=== PATIENT | male | born 1960 | race Caucasian/White ===

== ENCOUNTER 2021-06-11 15:47 | Emergency (ER) | payer MEDICARE ==
[~2021-06-11] VITALS: Ht 180.3 cm; Wt 86.2 kg
[2021-06-11 16:36] LABS: BASOPHILS # (AUTO) 0.1 (0.0-0.1); BASOPHILS % 0.7 % (0.0-1.0); EOSINOPHILS # (AUTO) 0.2 (0.0-0.4); EOSINOPHILS % 2.4 % (0.0-6.0); HEMATOCRIT 26.7 % (38.2-49.6); HEMOGLOBIN 8.5 g/dL (14.0-18.0); LYMPHOCYTES # (AUTO) 1.2 (1.0-3.2); LYMPHOCYTES % 16.3 % (18.0-39.1); MEAN CORPUSCULAR HEMOGLOBIN 27.3 pg (28-32); MEAN CORPUSCULAR HGB CONC 31.8 g/dL (31-35); MEAN CORPUSCULAR VOLUME 85.9 fL (81-99); MONOCYTES # (AUTO) 0.7 (0.2-0.8); MONOCYTES % 9.8 % (4.4-11.3); NEUTROPHILS # (AUTO) 5.1 (2.1-6.9); NEUTROPHILS % 70.2 % (38.7-80.0); PLATELET COUNT 86 x10e3/uL (140-360); RED BLOOD COUNT 3.11 x10e6/uL (4.3-5.7)
[2021-06-11 16:42] LABS: INR 1.16; PROTHROMBIN TIME 15.7 seconds (11.9-14.5)
[2021-06-11 16:51] LABS: ANION GAP 16.6 mmol/L (8-16); CALCIUM 8.1 mg/dL (8.4-10.2); CREATININE, SERUM 0.84 mg/dL (0.72-1.25); MAGNESIUM 1.5 MG/DL (1.3-2.1); POTASSIUM 4.6 mmol/L (3.5-5.1)
[2021-06-11 16:52] LABS: ALBUMIN 3.1 g/dL (3.5-5.0); BILIRUBIN,DIRECT 0.6 mg/dL (0.0-0.5)
[2021-06-11] MEDS ORDERED: Pantoprazole IV 40 MG in SODIUM CHLORIDE 0.9% 50ML 50 ML IV SCH (17:00)
[2021-06-11 18:46] VITALS: BP 125/82
== END 2021-06-11 18:48 | disposition home or self-care (01) ==
LOC: ER 15:56
DX: K92.2 Gastrointestinal hemorrhage, unspecified (principal); I10 Essential (primary) hypertension; E11.65 Type 2 diabetes mellitus with hyperglycemia; K76.9 Liver disease, unspecified
CPT/HCPCS: 36415; 71045; 80048; 80076; 82140; 82150; 83690; 83735; 85025; 85610; 85730; 86850; 86900; 93005; 99283; C9113

== ENCOUNTER 2021-06-25 17:03 | Emergency (ER) | payer MEDICARE, OTHER ==
[~2021-06-25] VITALS: Ht 180.3 cm; Wt 86.2 kg
[2021-06-25 18:00] LABS: BASOPHILS % 0.7 % (0.0-1.0); EOSINOPHILS # (AUTO) 0.1 (0.0-0.4); HEMOGLOBIN 7.1 g/dL (14.0-18.0); LYMPHOCYTES # (AUTO) 0.5 (1.0-3.2); LYMPHOCYTES % 15.1 % (18.0-39.1); MEAN CORPUSCULAR HEMOGLOBIN 25.1 pg (28-32); MEAN CORPUSCULAR HGB CONC 29.6 g/dL (31-35); MEAN CORPUSCULAR VOLUME 84.8 fL (81-99); MONOCYTES # (AUTO) 0.4 (0.2-0.8); MONOCYTES % 12.1 % (4.4-11.3); NEUTROPHILS # (AUTO) 2.1 (2.1-6.9); NEUTROPHILS % 69.4 % (38.7-80.0); PLATELET COUNT 60 x10e3/uL (140-360); RED BLOOD COUNT 2.83 x10e6/uL (4.3-5.7)
[2021-06-25 18:17] LABS: ALBUMIN 2.9 g/dL (3.5-5.0); ALBUMIN/GLOBULIN RATIO 0.8 (0.8-2.0); ANION GAP 14.3 mmol/L (8-16); CALCIUM 8.1 mg/dL (8.4-10.2); CREATININE, SERUM 0.77 mg/dL (0.72-1.25); POTASSIUM 4.3 mmol/L (3.5-5.1)
[2021-06-25] MEDS ORDERED: IOPAMIDOL 370 MG/ML 200 ML INFUS..BTL INJ ONE (18:46)
[2021-06-25] MEDS ORDERED: SODIUM CHLORIDE 0.9% 50ML 50 ML ONE (18:46)
[2021-06-25 21:17] VITALS: BP 109/70
== END 2021-06-25 21:18 | disposition home or self-care (01) ==
LOC: ER 17:08
DX: R10.30 Lower abdominal pain, unspecified (principal); D64.9 Anemia, unspecified; R60.9 Edema, unspecified; K76.9 Liver disease, unspecified; I10 Essential (primary) hypertension; E11.9 Type 2 diabetes mellitus without complications
CPT/HCPCS: 36415; 71045; 74177; 80053; 85025; 86850; 86900; 99284; Q9967

== ENCOUNTER 2021-12-27 21:29 | Inpatient (IN) | payer MEDICARE, OTHER ==
[~2021-12-27] VITALS: Ht 177.8 cm; Wt 70.3 kg
[2021-12-27] MEDS: SODIUM CHLORIDE 0.9% 1000ML 1,000 ML IV SCH (02:10)
[2021-12-27] MEDS ORDERED: SODIUM CHLORIDE 0.9% 1000ML 1,000 ML IV SCH (21:45)
[2021-12-27] MEDS ORDERED: ALBUMIN 25% 25GM 100ML 0.25 GM/ML BTL IV ONE (21:45)
[2021-12-27 22:17] LABS: BASOPHILS % 0.8 % (0.0-1.0); EOSINOPHILS # (AUTO) 0.1 (0.0-0.4); EOSINOPHILS % 3.5 % (0.0-6.0); HEMATOCRIT 34.2 % (38.2-49.6); HEMOGLOBIN 11.4 g/dL (14.0-18.0); LYMPHOCYTES # (AUTO) 0.5 (1.0-3.2); LYMPHOCYTES % 12.1 % (18.0-39.1); MEAN CORPUSCULAR HEMOGLOBIN 27.6 pg (28-32); MEAN CORPUSCULAR HGB CONC 33.3 g/dL (31-35); MEAN CORPUSCULAR VOLUME 82.8 fL (81-99); MONOCYTES # (AUTO) 0.6 (0.2-0.8); MONOCYTES % 15.6 % (4.4-11.3); NEUTROPHILS # (AUTO) 2.5 (2.1-6.9); NEUTROPHILS % 67.7 % (38.7-80.0); RED BLOOD COUNT 4.13 x10e6/uL (4.3-5.7); RED CELL DISTRIBUTION WIDTH 19.9 % (11.7-14.4)
[2021-12-27 22:20] LABS: PLATELET COUNT 62 x10e3/uL (140-360)
[2021-12-27 22:26] LABS: INR 1.05; PROTHROMBIN TIME 14.6 seconds (11.9-14.5)
[2021-12-27 22:34] LABS: ALBUMIN 3.1 g/dL (3.5-5.0); ALBUMIN/GLOBULIN RATIO 0.6 (0.8-2.0); ANION GAP 17.9 mmol/L (8-16); CALCIUM 9.1 mg/dL (8.4-10.2); CREATININE, SERUM 1.59 mg/dL (0.72-1.25)
[2021-12-27 22:36] LABS: POTASSIUM 5.9 mmol/L (3.5-5.1)
[2021-12-27] MEDS ORDERED: IOPAMIDOL 370 MG/ML 100 ML INFUS..BTL INJ ONE (22:53)
[2021-12-27] MEDS ORDERED: SODIUM CHLORIDE 0.9% 100 ML ONE (22:53)
[2021-12-27] MEDS ORDERED: SODIUM BICARBONATE 8.4% INJ 50 ML SYR IV STA (23:17)
[2021-12-27] MEDS ORDERED: ALBUTEROL SULF 0.083% NEB SOLN 3 ML NEB NEB STA (23:17)
[2021-12-27] MEDS ORDERED: SOD POLYSTYRENE SULFONATE SUSP 15 GM/60 ML BTL PO ONE (23:30)
[2021-12-27] MEDS ORDERED: INSULIN REGULAR, HUMAN 100 UNIT/1 ML IV ONE (23:30)
[2021-12-28] VITALS (15 sets, daily range): BP systolic 90–118; BP diastolic 56–86
[2021-12-28] MEDS ORDERED: SODIUM CHLORIDE 0.9% 1000ML 1,000 ML IV ONE (01:00)
[2021-12-28 03:05] LABS: ABG PH 7.43 (7.35-7.45)
[2021-12-28 03:06] LABS: ABG HCO3 25 mmol/L (22-26); ABG PCO2 38 mmHg (35-45); ABG PO2 82 mmHg (80-105); ABG TCO2 26
[2021-12-28 05:40] LABS: ANION GAP 15.9 mmol/L (8-16); CALCIUM 8.3 mg/dL (8.4-10.2); CREATININE, SERUM 1.12 mg/dL (0.72-1.25); POTASSIUM 4.9 mmol/L (3.5-5.1)
[2021-12-28] MEDS: SODIUM CHLORIDE 0.9% 1000ML 1,000 ML IV SCH (06:10)
[2021-12-28 06:47] LABS: BASOPHILS % 0.5 % (0.0-1.0); EOSINOPHILS # (AUTO) 0.1 (0.0-0.4); EOSINOPHILS % 4.9 % (0.0-6.0); HEMATOCRIT 28.7 % (38.2-49.6); HEMOGLOBIN 9.7 g/dL (14.0-18.0); LYMPHOCYTES # (AUTO) 0.5 (1.0-3.2); LYMPHOCYTES % 24.5 % (18.0-39.1); MEAN CORPUSCULAR HEMOGLOBIN 27.9 pg (28-32); MEAN CORPUSCULAR HGB CONC 33.8 g/dL (31-35); MEAN CORPUSCULAR VOLUME 82.5 fL (81-99); MONOCYTES # (AUTO) 0.3 (0.2-0.8); MONOCYTES % 15.7 % (4.4-11.3); NEUTROPHILS # (AUTO) 1.1 (2.1-6.9); NEUTROPHILS % 53.9 % (38.7-80.0); RED BLOOD COUNT 3.48 x10e6/uL (4.3-5.7); RED CELL DISTRIBUTION WIDTH 19.9 % (11.7-14.4)
[2021-12-28 06:49] LABS: PLATELET COUNT 34 x10e3/uL (140-360)
[2021-12-28 07:53] LABS: ANISOCYTOSIS SLIGHT; PLATELET ESTIMATE MARKEDLY DECREASED; PLATELET MORPHOLOGY COMMENT NORMAL; RBC MORPHOLOGY COMMENT NORMAL
[2021-12-28] MEDS ORDERED: TEMAZEPAM 15 MG CAP PO PRN (08:00)
[2021-12-28] MEDS ORDERED: HYDRALAZINE HCL 20 MG/ML VIAL IV PRN (08:00)
[2021-12-28] MEDS ORDERED: POLYETHYLENE GLYCOL 3350 17 GM PACK PO PRN (08:00)
[2021-12-28] MEDS ORDERED: ONDANSETRON HCL INJ 2MG/ML 2ML 2 MG/ML VIAL IV PRN (08:00)
[2021-12-28] MEDS ORDERED: ACETAMINOPHEN 325 MG TAB PO PRN (08:00)
[2021-12-28 09:00] LABS: FREE T4 (FREE THYROXINE) 0.82 ng/dL (0.8-1.8); THYROID STIMULATING HORMONE 1.76 uIU/mL (0.350-4.940)
[2021-12-28] MEDS: FAMOTIDINE 20 MG/2 ML VIAL IV SCH ×2 (09:00→20:49)
[2021-12-28] MEDS: DOCUSATE SODIUM 100 MG CAP PO SCH ×2 (09:00→17:00)
[2021-12-28] MEDS ORDERED: LACTULOSE SYRUP 20 GM/30 ML UDC PO ONE (18:35)
[2021-12-28] MEDS ORDERED: DEXTROSE 50% SYRINGE 50 ML IV PRN (18:45)
[2021-12-28] MEDS ORDERED: SODIUM CHLORIDE 0.9% 1000ML 1,000 ML IV SCH (18:45)
[2021-12-28] MEDS ORDERED: AMITRIPTYLINE H25 MG PO (18:56)
[2021-12-28] MEDS ORDERED: PROPRANOLOL HCL10 MG PO (18:56)
[2021-12-28] MEDS ORDERED: METFORMIN HCL500 MG PO (18:56)
[2021-12-28] MEDS ORDERED: JANUVIA100 MG PO (18:56)
[2021-12-28] MEDS ORDERED: LISINOPRIL5 MG PO (18:56)
[2021-12-28] MEDS ORDERED: SPIRONOLACTONE100 MG PO (18:56)
[2021-12-28] MEDS ORDERED: LASIX40 MG PO (18:56)
[2021-12-28] MEDS ORDERED: PROTONIX20 MG PO (18:56)
[2021-12-28] MEDS ORDERED: INSULIN GLARGINE 100 UNITS/ML VIAL SQ ONE (21:00)
[2021-12-28] MEDS: INSULIN REGULAR, HUMAN 100 UNIT/1 ML SQ SCH (21:10)
[2021-12-29] VITALS (8 sets, daily range): BP systolic 113–134; BP diastolic 65–91
[2021-12-29 03:48] LABS: % IRON SATURATION 13 % (15-50); IRON 36 ug/dL (65-175); TOTAL IRON BINDING CAPACITY 284 ug/dL (261-478); TRANSFERRIN 203 mg/dL (174-364)
[2021-12-29] MEDS ORDERED: LACTULOSE SYRUP 20 GM/30 ML UDC PO PRN (04:30)
[2021-12-29 06:16] LABS: BASOPHILS % 0.7 % (0.0-1.0); EOSINOPHILS # (AUTO) 0.1 (0.0-0.4); EOSINOPHILS % 3.4 % (0.0-6.0); HEMATOCRIT 32.4 % (38.2-49.6); HEMOGLOBIN 10.4 g/dL (14.0-18.0); LYMPHOCYTES # (AUTO) 0.3 (1.0-3.2); LYMPHOCYTES % 20.5 % (18.0-39.1); MEAN CORPUSCULAR HGB CONC 32.1 g/dL (31-35); MEAN CORPUSCULAR VOLUME 87.1 fL (81-99); MONOCYTES # (AUTO) 0.3 (0.2-0.8); MONOCYTES % 17.1 % (4.4-11.3); NEUTROPHILS # (AUTO) 0.9 (2.1-6.9); NEUTROPHILS % 58.3 % (38.7-80.0); RED BLOOD COUNT 3.72 x10e6/uL (4.3-5.7); RED CELL DISTRIBUTION WIDTH 19.9 % (11.7-14.4)
[2021-12-29 06:33] LABS: ALBUMIN 2.8 g/dL (3.5-5.0); ALBUMIN/GLOBULIN RATIO 0.6 (0.8-2.0); ANION GAP 13.6 mmol/L (8-16); CALCIUM 8.1 mg/dL (8.4-10.2); CHOL/HDL RATIO 6.5 (3.9-4.7); CREATININE, SERUM 1.1 mg/dL (0.72-1.25); MAGNESIUM 1.6 MG/DL (1.3-2.1); PHOSPHORUS 2.2 MG/DL (2.3-4.7); POTASSIUM 4.6 mmol/L (3.5-5.1)
[2021-12-29 06:39] LABS: PLATELET COUNT 30 x10e3/uL (140-360)
[2021-12-29] MEDS ORDERED: MAGNESIUM SULFATE 2GM/50ML 50 ML IV ONE (07:30)
[2021-12-29] MEDS: INSULIN REGULAR, HUMAN 100 UNIT/1 ML SQ SCH ×4 (08:10→21:12)
[2021-12-29] MEDS: DOCUSATE SODIUM 100 MG CAP PO SCH ×2 (09:00→16:27)
[2021-12-29] MEDS ORDERED: IRON SUCROSE 100 MG in SODIUM CHLORIDE 0.9% 100 ML 100 ML IV SCH (09:00)
[2021-12-29] MEDS ORDERED: AMITRIPTYLINE HCL 25 MG TAB PO SCH (09:00)
[2021-12-29 09:54] LABS: EOSINOPHILS % (MANUAL) 2 % (0-7); LYMPHOCYTES % (MANUAL) 20 % (19-48); MONOCYTES % (MANUAL) 8 % (3.4-9.0); NEUTROPHILS % (MANUAL) 69 % (40-74)
[2021-12-29 09:56] LABS: ANISOCYTOSIS MODERATE; HYPOCHROMASIA MODERATE; PLATELET ESTIMATE MARKEDLY DECREASED; PLATELET MORPHOLOGY COMMENT NORMAL; RBC MORPHOLOGY COMMENT ABNORMAL
[2021-12-29] MEDS: AMITRIPTYLINE HCL 25 MG TAB PO SCH (10:11)
[2021-12-29] MEDS: FAMOTIDINE 20 MG/2 ML VIAL IV SCH ×2 (10:11→16:35)
[2021-12-29] MEDS: IRON SUCROSE 100 MG in SODIUM CHLORIDE 0.9% 100 ML 100 ML IV SCH (11:40)
[2021-12-29] MEDS: INSULIN GLARGINE 100 UNITS/ML VIAL SQ SCH (21:31)
[2021-12-30] VITALS (7 sets, daily range): BP systolic 102–122; BP diastolic 65–98
[2021-12-30 06:26] LABS: EOSINOPHILS # (AUTO) 0.1 (0.0-0.4); EOSINOPHILS % 4.6 % (0.0-6.0); HEMATOCRIT 32.5 % (38.2-49.6); HEMOGLOBIN 10.3 g/dL (14.0-18.0); LYMPHOCYTES # (AUTO) 0.3 (1.0-3.2); MEAN CORPUSCULAR HEMOGLOBIN 27.2 pg (28-32); MEAN CORPUSCULAR HGB CONC 31.7 g/dL (31-35); MONOCYTES # (AUTO) 0.2 (0.2-0.8); MONOCYTES % 16.2 % (4.4-11.3); NEUTROPHILS # (AUTO) 0.8 (2.1-6.9); NEUTROPHILS % 59.2 % (38.7-80.0); RED BLOOD COUNT 3.78 x10e6/uL (4.3-5.7); RED CELL DISTRIBUTION WIDTH 19.7 % (11.7-14.4)
[2021-12-30 06:54] LABS: PLATELET COUNT 25 x10e3/uL (140-360)
[2021-12-30] MEDS: INSULIN REGULAR, HUMAN 100 UNIT/1 ML SQ SCH ×4 (07:30→22:15)
[2021-12-30] MEDS ORDERED: SODIUM FERRIC GLUCONATE COMPLX 125 MG in SODIUM CHLORIDE 0.9% 100 ML 100 ML IV SCH (09:00)
[2021-12-30] MEDS: DOCUSATE SODIUM 100 MG CAP PO SCH ×2 (09:00→17:00)
[2021-12-30] MEDS: PROPRANOLOL HCL 10 MG TAB PO SCH ×2 (09:00→17:00)
[2021-12-30] MEDS: AMITRIPTYLINE HCL 25 MG TAB PO SCH (09:00)
[2021-12-30] MEDS: INSULIN GLARGINE 100 UNITS/ML VIAL SQ SCH ×2 (09:00→22:15)
[2021-12-30] MEDS: FAMOTIDINE 20 MG/2 ML VIAL IV SCH ×2 (09:00→17:00)
[2021-12-30 09:02] LABS: EOSINOPHILS % (MANUAL) 4 % (0-7); LYMPHOCYTES % (MANUAL) 18 % (19-48); MONOCYTES % (MANUAL) 16 % (3.4-9.0); NEUTROPHILS % (MANUAL) 62 % (40-74); PLATELET ESTIMATE MARKEDLY DECREASED; PLATELET MORPHOLOGY COMMENT NORMAL; RBC MORPHOLOGY COMMENT NORMAL
[2021-12-30] MEDS ORDERED: FILGRASTIM-AAFI 300 MCG/0.5 ML SYRINGE SQ ONE (09:30)
[2021-12-30] MEDS: IRON SUCROSE 100 MG in SODIUM CHLORIDE 0.9% 100 ML 100 ML IV SCH (13:10)
[2021-12-31 01:57] VITALS: BP 128/72
[2021-12-31 06:11] VITALS: BP 110/60
[2021-12-31 07:15] LABS: BASOPHILS % 0.3 % (0.0-1.0); EOSINOPHILS # (AUTO) 0.1 (0.0-0.4); EOSINOPHILS % 1.5 % (0.0-6.0); HEMATOCRIT 32.3 % (38.2-49.6); HEMOGLOBIN 10.2 g/dL (14.0-18.0); LYMPHOCYTES # (AUTO) 0.4 (1.0-3.2); LYMPHOCYTES % 5.7 % (18.0-39.1); MEAN CORPUSCULAR HEMOGLOBIN 27.9 pg (28-32); MEAN CORPUSCULAR HGB CONC 31.6 g/dL (31-35); MEAN CORPUSCULAR VOLUME 88.5 fL (81-99); MONOCYTES # (AUTO) 0.5 (0.2-0.8); NEUTROPHILS # (AUTO) 6.2 (2.1-6.9); NEUTROPHILS % 84.8 % (38.7-80.0); RED BLOOD COUNT 3.65 x10e6/uL (4.3-5.7); RED CELL DISTRIBUTION WIDTH 19.7 % (11.7-14.4)
[2021-12-31 07:43] LABS: PLATELET COUNT 24 x10e3/uL (140-360)
[2021-12-31 07:52] LABS: ANION GAP 13.2 mmol/L (8-16); CALCIUM 8.6 mg/dL (8.4-10.2); CREATININE, SERUM 0.97 mg/dL (0.72-1.25); POTASSIUM 5.2 mmol/L (3.5-5.1)
[2021-12-31] MEDS ORDERED: LANTUS 3ML100 UNITS/ SC (07:56)
[2021-12-31] MEDS: INSULIN REGULAR, HUMAN 100 UNIT/1 ML SQ SCH ×2 (08:25→11:30)
[2021-12-31 09:00] VITALS: BP 110/60
[2021-12-31 09:13] VITALS: BP 109/70
[2021-12-31] MEDS: FAMOTIDINE 20 MG/2 ML VIAL IV SCH (09:14)
[2021-12-31] MEDS: DOCUSATE SODIUM 100 MG CAP PO SCH (09:14)
[2021-12-31] MEDS: AMITRIPTYLINE HCL 25 MG TAB PO SCH (09:14)
[2021-12-31] MEDS: PROPRANOLOL HCL 10 MG TAB PO SCH (09:15)
[2021-12-31] MEDS: INSULIN GLARGINE 100 UNITS/ML VIAL SQ SCH (09:16)
[2021-12-31] MEDS: IRON SUCROSE 100 MG in SODIUM CHLORIDE 0.9% 100 ML 100 ML IV SCH (11:04)
[2021-12-31] MEDS ORDERED: ONDANSETRON HCL 4 MG ORAL DISINTEGRATING TAB PO PRN (13:15)
[2021-12-31] MEDS ORDERED: FAMOTIDINE 20 MG TAB PO SCH (16:30)
== END 2021-12-31 14:00 | disposition home or self-care (01) | DRG 641 ==
LOC: ER 21:42 → ERHOLD 23:23 → ICU 12-28 01:08 → MED/SURG2 12-29 22:35
PROVIDERS: ADMIT Internal Medicine; ATTEND Internal Medicine
DX: E87.5 Hyperkalemia (principal); N17.9 Acute kidney failure, unspecified; D61.818 Other pancytopenia; K76.6 Portal hypertension; I85.10 Secondary esophageal varices without bleeding; E78.5 Hyperlipidemia, unspecified; E87.1 Hypo-osmolality and hyponatremia; E87.2 Acidosis; E86.0 Dehydration; E11.65 Type 2 diabetes mellitus with hyperglycemia; Z87.891 Personal history of nicotine dependence; Z79.4 Long term (current) use of insulin; K31.89 Other diseases of stomach and duodenum; D63.8 Anemia in other chronic diseases classified elsewhere; D70.9 Neutropenia, unspecified; D50.9 Iron deficiency anemia, unspecified; E53.8 Deficiency of other specified B group vitamins; B19.20 Unspecified viral hepatitis C without hepatic coma; D73.1 Hypersplenism; K70.31 Alcoholic cirrhosis of liver with ascites; Z91.010 Allergy to peanuts
CPT/HCPCS: 36415; 36600; 70450; 71045; 74174; 80048; 80053; 80061; 82607; 82746; 82805; 82948; 83036; 83540; 83735; 83880; 84100; 84439; 84443; 84466; 84484; 85025; 85045; 85610; 86850; 86900; 93005; 93880; 94640; 94799; 97139; 99251; 99284; J1756; J1815; J1817; J3475; J7030; J7050; P9047; Q9967

== ENCOUNTER 2022-01-12 15:34 | Inpatient (IN) | payer MEDICARE, OTHER ==
[~2022-01-12] VITALS: Ht 175.3 cm; Wt 68.5 kg
[~2022-01-12 15:34] MED LIST: AMITRIPTYLINE H25 MG PO; JANUVIA100 MG PO; LANTUS 3ML100 UNITS/ SC; LASIX40 MG PO; LISINOPRIL5 MG PO; METFORMIN HCL500 MG PO; PROPRANOLOL HCL10 MG PO; PROTONIX20 MG PO; SPIRONOLACTONE100 MG PO
[2022-01-12 16:32] LABS: BASOPHILS % 0.8 % (0.0-1.0); EOSINOPHILS # (AUTO) 0.1 (0.0-0.4); EOSINOPHILS % 3.9 % (0.0-6.0); HEMATOCRIT 35.7 % (38.2-49.6); HEMOGLOBIN 11.8 g/dL (14.0-18.0); LYMPHOCYTES # (AUTO) 0.3 (1.0-3.2); MEAN CORPUSCULAR HEMOGLOBIN 28.9 pg (28-32); MEAN CORPUSCULAR HGB CONC 33.1 g/dL (31-35); MEAN CORPUSCULAR VOLUME 87.5 fL (81-99); MONOCYTES # (AUTO) 0.3 (0.2-0.8); NEUTROPHILS # (AUTO) 1.8 (2.1-6.9); NEUTROPHILS % 70.9 % (38.7-80.0); RED BLOOD COUNT 4.08 x10e6/uL (4.3-5.7); RED CELL DISTRIBUTION WIDTH 17.1 % (11.7-14.4)
[2022-01-12 16:35] LABS: PLATELET COUNT 45 x10e3/uL (140-360)
[2022-01-12 16:44] LABS: INR 1.12; PROTHROMBIN TIME 15.4 seconds (11.9-14.5)
[2022-01-12 16:51] LABS: ALBUMIN 3.2 g/dL (3.5-5.0); ALBUMIN/GLOBULIN RATIO 0.6 (0.8-2.0); ANION GAP 19.1 mmol/L (8-16); CALCIUM 9.4 mg/dL (8.4-10.2); CREATININE, SERUM 1.5 mg/dL (0.72-1.25)
[2022-01-12 17:07] LABS: POTASSIUM 6.1 mmol/L (3.5-5.1)
[2022-01-12] MEDS ORDERED: ALBUTEROL SULF 0.083% NEB SOLN 3 ML NEB NEB STA (17:10)
[2022-01-12] MEDS ORDERED: SODIUM BICARBONATE 8.4% INJ 50 ML SYR IV STA (17:10)
[2022-01-12] MEDS ORDERED: CALCIUM GLUC 1 G/50 ML NACL 50 ML IV ONE (17:15)
[2022-01-12] MEDS ORDERED: ONDANSETRON HCL INJ 2MG/ML 2ML 2 MG/ML VIAL IV PRN (17:15)
[2022-01-12] MEDS ORDERED: DEXTROSE 50% SYRINGE 50 ML IV ONE (17:15)
[2022-01-12] MEDS ORDERED: FUROSEMIDE INJ 10 MG/ML 2 ML VIAL IV ONE (17:15)
[2022-01-12] MEDS ORDERED: Morphine 4mg INJECTION 4 MG/ML INJ IV PRN (17:15)
[2022-01-12 17:40] LABS: CREATINE KINASE 69 IU/L (30-200)
[2022-01-12] MEDS ORDERED: INSULIN REGULAR, HUMAN 100 UNIT/1 ML SQ ONE (17:45)
[2022-01-12] MEDS: SODIUM CHLORIDE 0.9% 1000ML 1,000 ML IV SCH (17:50)
[2022-01-12] MEDS ORDERED: ACETAMINOPHEN 325 MG TAB PO PRN (18:30)
[2022-01-12] MEDS ORDERED: HYDRALAZINE HCL 20 MG/ML VIAL IV PRN (18:30)
[2022-01-12] MEDS ORDERED: DEXTROSE 50% SYRINGE 50 ML IV PRN (18:45)
[2022-01-12 19:27] LABS: CLARITY,URINE CLEAR (CLEAR); COLOR,URINE YELLOW (YELLOW); KETONES,URINE NEGATIVE (NEGATIVE); LEUKOCYTE ESTERASE ,URINE NEGATIVE (NEGATIVE); NITRITE,URINE NEGATIVE (NEGATIVE); PROTEIN,URINE DIPSTICK NEGATIVE (NEGATIVE); URINE UROBILINOGEN 0.2 mg/dL (0.2 - 1)
[2022-01-12 19:34] LABS: WBC,URINE (MAN) 0-5 /HPF (0-5)
[2022-01-12 19:35] LABS: BACTERIA,URINE MANY /HPF
[2022-01-12] MEDS ORDERED: ALBUTEROL SULF 0.083% NEB SOLN 3 ML NEB ONE (20:20)
[2022-01-12] MEDS ORDERED: AMITRIPTYLINE H75 MG PO (20:45)
[2022-01-12] MEDS ORDERED: ZOLPIDEM TARTRATE 5 MG TAB PO PRN (21:00)
[2022-01-12] MEDS: INSULIN REGULAR, HUMAN 100 UNIT/1 ML SQ SCH (21:10)
[2022-01-12] MEDS: INSULIN GLARGINE 100 UNITS/ML VIAL SQ SCH (21:11)
[2022-01-12 23:00] VITALS: BP 106/82
[2022-01-13] VITALS (18 sets, daily range): BP systolic 92–146; BP diastolic 55–120
[2022-01-13 00:02] LABS: % IRON SATURATION 23 % (15-50); IRON 87 ug/dL (65-175); TOTAL IRON BINDING CAPACITY 378 ug/dL (261-478); TRANSFERRIN 270 mg/dL (174-364)
[2022-01-13] MEDS: AMITRIPTYLINE HCL 25 MG TAB PO SCH ×2 (00:28→22:05)
[2022-01-13] MEDS: SODIUM CHLORIDE 0.9% 1000ML 1,000 ML IV SCH ×2 (00:29→08:22)
[2022-01-13 05:47] LABS: BASOPHILS % 0.5 % (0.0-1.0); EOSINOPHILS # (AUTO) 0.1 (0.0-0.4); EOSINOPHILS % 4.7 % (0.0-6.0); HEMOGLOBIN 9.9 g/dL (14.0-18.0); LYMPHOCYTES # (AUTO) 0.4 (1.0-3.2); LYMPHOCYTES % 21.4 % (18.0-39.1); MEAN CORPUSCULAR HEMOGLOBIN 28.8 pg (28-32); MEAN CORPUSCULAR VOLUME 87.2 fL (81-99); MONOCYTES # (AUTO) 0.3 (0.2-0.8); MONOCYTES % 14.6 % (4.4-11.3); NEUTROPHILS # (AUTO) 1.1 (2.1-6.9); NEUTROPHILS % 58.3 % (38.7-80.0); RED BLOOD COUNT 3.44 x10e6/uL (4.3-5.7); RED CELL DISTRIBUTION WIDTH 16.9 % (11.7-14.4)
[2022-01-13 05:50] LABS: PLATELET COUNT 37 x10e3/uL (140-360)
[2022-01-13] MEDS ORDERED: CEFEPIME HCL 1 GM VIAL ONE (06:07)
[2022-01-13 06:18] LABS: ALBUMIN 2.6 g/dL (3.5-5.0); ALBUMIN/GLOBULIN RATIO 0.6 (0.8-2.0); ANION GAP 15.3 mmol/L (8-16); CALCIUM 8.1 mg/dL (8.4-10.2); CREATININE, SERUM 0.85 mg/dL (0.72-1.25); POTASSIUM 4.3 mmol/L (3.5-5.1)
[2022-01-13 06:39] LABS: CREATINE KINASE 58 IU/L (30-200)
[2022-01-13 07:02] LABS: MAGNESIUM 1.3 MG/DL (1.3-2.1)
[2022-01-13 07:40] LABS: EOSINOPHILS % (MANUAL) 3 % (0-7); LYMPHOCYTES % (MANUAL) 23 % (19-48); MONOCYTES % (MANUAL) 12 % (3.4-9.0); NEUTROPHILS % (MANUAL) 62 % (40-74); PLATELET ESTIMATE MARKEDLY DECREASED; PLATELET MORPHOLOGY COMMENT NORMAL; RBC MORPHOLOGY COMMENT NORMAL
[2022-01-13] MEDS: INSULIN REGULAR, HUMAN 100 UNIT/1 ML SQ SCH ×4 (07:50→22:13)
[2022-01-13] MEDS: FAMOTIDINE 20 MG/2 ML VIAL IV SCH (08:22)
[2022-01-13] MEDS ORDERED: ALDACTONE100 MG PO (11:05)
[2022-01-13] MEDS ORDERED: DICYCLOMINE HCL20 MG PO (11:06)
[2022-01-13 14:51] LABS: CREATINE KINASE 69 IU/L (30-200)
[2022-01-13] MEDS: INSULIN GLARGINE 100 UNITS/ML VIAL SQ SCH (22:11)
[2022-01-14] VITALS (16 sets, daily range): BP systolic 100–132; BP diastolic 62–82
[2022-01-14] MEDS ORDERED: MAGNESIUM SULF 1GRAM/DEXTROSE 100 ML IV SCH (00:15)
[2022-01-14] MEDS ORDERED: MAGNESIUM SULF 1GRAM/DEXTROSE 100 ML IV ONE (00:30)
[2022-01-14] MEDS ORDERED: MAGNESIUM SULFATE 2GM/50ML 50 ML IV ONE (01:15)
[2022-01-14 05:24] LABS: BASOPHILS % 0.7 % (0.0-1.0); EOSINOPHILS # (AUTO) 0.1 (0.0-0.4); EOSINOPHILS % 5.6 % (0.0-6.0); HEMATOCRIT 31.1 % (38.2-49.6); HEMOGLOBIN 10.2 g/dL (14.0-18.0); LYMPHOCYTES # (AUTO) 0.3 (1.0-3.2); LYMPHOCYTES % 19.6 % (18.0-39.1); MEAN CORPUSCULAR HEMOGLOBIN 28.8 pg (28-32); MEAN CORPUSCULAR HGB CONC 32.8 g/dL (31-35); MEAN CORPUSCULAR VOLUME 87.9 fL (81-99); MONOCYTES # (AUTO) 0.3 (0.2-0.8); MONOCYTES % 17.5 % (4.4-11.3); NEUTROPHILS # (AUTO) 0.8 (2.1-6.9); NEUTROPHILS % 55.9 % (38.7-80.0); RED BLOOD COUNT 3.54 x10e6/uL (4.3-5.7); RED CELL DISTRIBUTION WIDTH 16.9 % (11.7-14.4)
[2022-01-14 05:40] LABS: PLATELET COUNT 32 x10e3/uL (140-360)
[2022-01-14] MEDS ORDERED: SODIUM CHLORIDE 0.9% 250ML 250 ML ONE (05:57)
[2022-01-14 06:02] LABS: ALBUMIN 2.7 g/dL (3.5-5.0); ALBUMIN/GLOBULIN RATIO 0.6 (0.8-2.0); ANION GAP 12.5 mmol/L (8-16); CALCIUM 7.9 mg/dL (8.4-10.2); CREATININE, SERUM 0.83 mg/dL (0.72-1.25); POTASSIUM 4.5 mmol/L (3.5-5.1)
[2022-01-14] MEDS: INSULIN REGULAR, HUMAN 100 UNIT/1 ML SQ SCH ×4 (07:49→20:54)
[2022-01-14] MEDS: FAMOTIDINE 20 MG/2 ML VIAL IV SCH (08:34)
[2022-01-14] MEDS: GABAPENTIN 100 MG CAP PO SCH ×2 (10:30→20:44)
[2022-01-14] MEDS ORDERED: FILGRASTIM-AAFI 300 MCG/0.5 ML SYRINGE SQ ONE (12:00)
[2022-01-14] MEDS: SODIUM FERRIC GLUCONATE COMPLX 125 MG in SODIUM CHLORIDE 0.9% 100 ML 100 ML IV SCH (13:45)
[2022-01-14] MEDS: AMITRIPTYLINE HCL 25 MG TAB PO SCH (20:44)
[2022-01-14] MEDS: INSULIN GLARGINE 100 UNITS/ML VIAL SQ SCH (20:53)
[2022-01-15] VITALS (7 sets, daily range): BP systolic 121–145; BP diastolic 64–83
[2022-01-15] MEDS: INSULIN REGULAR, HUMAN 100 UNIT/1 ML SQ SCH ×4 (08:37→20:32)
[2022-01-15] MEDS: FAMOTIDINE 20 MG/2 ML VIAL IV SCH (08:43)
[2022-01-15] MEDS: GABAPENTIN 100 MG CAP PO SCH (08:43)
[2022-01-15 09:31] LABS: BASOPHILS % 0.4 % (0.0-1.0); EOSINOPHILS # (AUTO) 0.1 (0.0-0.4); EOSINOPHILS % 2.6 % (0.0-6.0); HEMOGLOBIN 11.1 g/dL (14.0-18.0); LYMPHOCYTES # (AUTO) 0.4 (1.0-3.2); LYMPHOCYTES % 7.6 % (18.0-39.1); MEAN CORPUSCULAR HEMOGLOBIN 28.9 pg (28-32); MEAN CORPUSCULAR HGB CONC 32.6 g/dL (31-35); MEAN CORPUSCULAR VOLUME 88.5 fL (81-99); MONOCYTES # (AUTO) 0.6 (0.2-0.8); NEUTROPHILS # (AUTO) 4.2 (2.1-6.9); RED BLOOD COUNT 3.84 x10e6/uL (4.3-5.7); RED CELL DISTRIBUTION WIDTH 16.9 % (11.7-14.4)
[2022-01-15 09:37] LABS: PLATELET COUNT 34 x10e3/uL (140-360)
[2022-01-15] MEDS: GABAPENTIN 300 MG CAP PO SCH ×2 (12:00→21:57)
[2022-01-15 12:59] LABS: ALBUMIN/GLOBULIN RATIO 0.6 (0.8-2.0); ANION GAP 15.2 mmol/L (8-16); CALCIUM 8.4 mg/dL (8.4-10.2); CREATININE, SERUM 0.84 mg/dL (0.72-1.25); POTASSIUM 4.2 mmol/L (3.5-5.1)
[2022-01-15] MEDS ORDERED: INSULIN GLARGINE 100 UNITS/ML VIAL SQ SCH (13:30)
[2022-01-15] MEDS: SODIUM FERRIC GLUCONATE COMPLX 125 MG in SODIUM CHLORIDE 0.9% 100 ML 100 ML IV SCH (15:55)
[2022-01-15] MEDS: INSULIN GLARGINE 100 UNITS/ML VIAL SQ SCH (20:28)
[2022-01-15] MEDS: AMITRIPTYLINE HCL 25 MG TAB PO SCH (21:56)
[2022-01-16] VITALS (10 sets, daily range): BP systolic 107–138; BP diastolic 60–99
[2022-01-16 07:14] LABS: BASOPHILS % 0.7 % (0.0-1.0); EOSINOPHILS # (AUTO) 0.1 (0.0-0.4); HEMATOCRIT 29.2 % (38.2-49.6); HEMOGLOBIN 9.6 g/dL (14.0-18.0); LYMPHOCYTES # (AUTO) 0.5 (1.0-3.2); LYMPHOCYTES % 15.8 % (18.0-39.1); MEAN CORPUSCULAR HEMOGLOBIN 28.7 pg (28-32); MEAN CORPUSCULAR HGB CONC 32.9 g/dL (31-35); MEAN CORPUSCULAR VOLUME 87.4 fL (81-99); MONOCYTES # (AUTO) 0.5 (0.2-0.8); MONOCYTES % 15.4 % (4.4-11.3); NEUTROPHILS # (AUTO) 1.9 (2.1-6.9); NEUTROPHILS % 63.4 % (38.7-80.0); RED BLOOD COUNT 3.34 x10e6/uL (4.3-5.7); RED CELL DISTRIBUTION WIDTH 16.8 % (11.7-14.4)
[2022-01-16 07:21] LABS: PLATELET COUNT 27 x10e3/uL (140-360)
[2022-01-16 07:37] LABS: ALBUMIN 2.6 g/dL (3.5-5.0); ALBUMIN/GLOBULIN RATIO 0.7 (0.8-2.0); ANION GAP 11.1 mmol/L (8-16); CALCIUM 8.1 mg/dL (8.4-10.2); CREATININE, SERUM 0.78 mg/dL (0.72-1.25); POTASSIUM 4.1 mmol/L (3.5-5.1)
[2022-01-16] MEDS: METOPROLOL SUCCINATE 25 MG TAB XL PO SCH (09:00)
[2022-01-16] MEDS: GABAPENTIN 300 MG CAP PO SCH ×2 (09:00→21:22)
[2022-01-16] MEDS: FAMOTIDINE 20 MG/2 ML VIAL IV SCH (09:00)
[2022-01-16] MEDS: INSULIN GLARGINE 100 UNITS/ML VIAL SQ SCH ×2 (09:51→21:43)
[2022-01-16] MEDS: INSULIN REGULAR, HUMAN 100 UNIT/1 ML SQ SCH ×4 (09:51→21:44)
[2022-01-16] MEDS: SODIUM FERRIC GLUCONATE COMPLX 125 MG in SODIUM CHLORIDE 0.9% 100 ML 100 ML IV SCH (14:07)
[2022-01-16] MEDS ORDERED: SODIUM CHLORIDE 0.9% 250ML 250 ML ONE (14:25)
[2022-01-16] MEDS: AMITRIPTYLINE HCL 25 MG TAB PO SCH (21:22)
[2022-01-17] VITALS: BP 97/53
[2022-01-17 04:00] VITALS: BP 124/75
[2022-01-17 06:36] LABS: BASOPHILS % 1.5 % (0.0-1.0); EOSINOPHILS # (AUTO) 0.1 (0.0-0.4); EOSINOPHILS % 4.4 % (0.0-6.0); HEMATOCRIT 31.5 % (38.2-49.6); HEMOGLOBIN 10.3 g/dL (14.0-18.0); LYMPHOCYTES # (AUTO) 0.4 (1.0-3.2); LYMPHOCYTES % 19.9 % (18.0-39.1); MEAN CORPUSCULAR HEMOGLOBIN 29.3 pg (28-32); MEAN CORPUSCULAR HGB CONC 32.7 g/dL (31-35); MEAN CORPUSCULAR VOLUME 89.7 fL (81-99); MONOCYTES # (AUTO) 0.3 (0.2-0.8); NEUTROPHILS # (AUTO) 1.2 (2.1-6.9); NEUTROPHILS % 57.7 % (38.7-80.0); RED BLOOD COUNT 3.51 x10e6/uL (4.3-5.7)
[2022-01-17 06:48] LABS: PLATELET COUNT 32 x10e3/uL (140-360)
[2022-01-17 06:51] LABS: ANION GAP 13.3 mmol/L (8-16); CALCIUM 8.5 mg/dL (8.4-10.2); CREATININE, SERUM 0.82 mg/dL (0.72-1.25); POTASSIUM 4.3 mmol/L (3.5-5.1)
[2022-01-17 07:51] VITALS: BP 115/67
[2022-01-17 08:13] VITALS: BP 115/67
[2022-01-17] MEDS: INSULIN GLARGINE 100 UNITS/ML VIAL SQ SCH (08:41)
[2022-01-17] MEDS: GABAPENTIN 300 MG CAP PO SCH (08:44)
[2022-01-17] MEDS: FAMOTIDINE 20 MG/2 ML VIAL IV SCH (08:45)
[2022-01-17] MEDS: METOPROLOL SUCCINATE 25 MG TAB XL PO SCH (08:45)
[2022-01-17] MEDS ORDERED: ASPIRIN CHEW81 MG PO (11:46)
[2022-01-17 11:56] VITALS: BP 123/79
== END 2022-01-17 12:24 | disposition home or self-care (01) | DRG 432 ==
LOC: ER 15:45 → ERHOLD 17:15 → ICU 22:23 → MED/SURG3 01-15 19:27
PROVIDERS: ADMIT Internal Medicine; ATTEND Internal Medicine
PROC: 02HV33Z Insertion of Infusion Device into Superior Vena Cava, Percutaneous Approach (ICD-10-PCS; principal; 2022-01-13)
DX: K70.30 Alcoholic cirrhosis of liver without ascites (principal); E11.10 Type 2 diabetes mellitus with ketoacidosis without coma; K65.2 Spontaneous bacterial peritonitis; K72.00 Acute and subacute hepatic failure without coma; D61.818 Other pancytopenia; N17.9 Acute kidney failure, unspecified; E87.1 Hypo-osmolality and hyponatremia; K76.6 Portal hypertension; E87.5 Hyperkalemia; B19.20 Unspecified viral hepatitis C without hepatic coma; R27.0 Ataxia, unspecified; Z91.81 History of falling; I10 Essential (primary) hypertension; D63.8 Anemia in other chronic diseases classified elsewhere; Z87.891 Personal history of nicotine dependence; Z88.6 Allergy status to analgesic agent; E11.42 Type 2 diabetes mellitus with diabetic polyneuropathy; I48.0 Paroxysmal atrial fibrillation; I49.3 Ventricular premature depolarization; Z20.822 Contact with and (suspected) exposure to COVID-19; Z80.3 Family history of malignant neoplasm of breast; Z82.49 Family history of ischemic heart disease and other diseases of the circulatory system; Z79.82 Long term (current) use of aspirin; Z79.84 Long term (current) use of oral hypoglycemic drugs; Z79.4 Long term (current) use of insulin
CPT/HCPCS: 0223U; 36415; 36569; 70450; 71045; 76700; 80048; 80053; 81001; 82140; 82550; 82553; 82607; 82728; 82746; 82948; 83036; 83540; 83735; 84100; 84466; 84484; 85025; 85610; 87040; 87522; 93005; 93306; 94640; 94799; 96372; 99284; J0692; J1815; J1817; J1940; J2916; J3475; J7030; J7050; J7799

== ENCOUNTER 2022-06-03 10:19 | Inpatient (IN) | payer MEDICARE, OTHER ==
[~2022-06-03] VITALS: Ht 175.3 cm; Wt 68.5 kg
[~2022-06-03 10:19] MED LIST changes: +ALDACTONE100 MG PO; +AMITRIPTYLINE H75 MG PO; +ASPIRIN CHEW81 MG PO; +DICYCLOMINE HCL20 MG PO
[2022-06-03 11:01] LABS: BASOPHILS % 0.6 % (0.0-1.0); EOSINOPHILS # (AUTO) 0.1 (0.0-0.4); EOSINOPHILS % 5.2 % (0.0-6.0); HEMATOCRIT 34.8 % (38.2-49.6); HEMOGLOBIN 11.4 g/dL (14.0-18.0); LYMPHOCYTES # (AUTO) 0.3 (1.0-3.2); LYMPHOCYTES % 17.9 % (18.0-39.1); MEAN CORPUSCULAR HEMOGLOBIN 28.3 pg (28-32); MEAN CORPUSCULAR HGB CONC 32.8 g/dL (31-35); MEAN CORPUSCULAR VOLUME 86.4 fL (81-99); MONOCYTES # (AUTO) 0.3 (0.2-0.8); MONOCYTES % 15.6 % (4.4-11.3); NEUTROPHILS % 60.1 % (38.7-80.0); RED BLOOD COUNT 4.03 x10e6/uL (4.3-5.7); RED CELL DISTRIBUTION WIDTH 15.2 % (11.7-14.4)
[2022-06-03 11:04] LABS: PLATELET COUNT 27 x10e3/uL (140-360)
[2022-06-03 11:27] LABS: INR 1.14; PROTHROMBIN TIME 15.6 seconds (11.9-14.5)
[2022-06-03] MEDS ORDERED: METFORMIN HCL1000 MG (11:33)
[2022-06-03] MEDS ORDERED: FUROSEMIDE20 MG (11:33)
[2022-06-03] MEDS ORDERED: AMITRIPTYLINE H25 MG (11:33)
[2022-06-03] MEDS ORDERED: GABAPENTIN100 MG (11:33)
[2022-06-03] MEDS ORDERED: INDERAL10 MG (11:33)
[2022-06-03 11:36] LABS: SALICYLATE < 5.0 mg/dL (0-30)
[2022-06-03] MEDS ORDERED: [UNRECOGNIZED DRUG - CODE] (11:36)
[2022-06-03] MEDS ORDERED: JANUVIA100 MG PO (11:36)
[2022-06-03 11:37] LABS: ALBUMIN 3.2 g/dL (3.5-5.0); ALBUMIN/GLOBULIN RATIO 0.8 (0.8-2.0); ANION GAP 13.5 mmol/L (8-16); CALCIUM 8.2 mg/dL (8.4-10.2); CREATININE, SERUM 0.82 mg/dL (0.72-1.25); POTASSIUM 3.5 mmol/L (3.5-5.1)
[2022-06-03 11:49] LABS: CLARITY,URINE SL CLOUDY (CLEAR); COLOR,URINE YELLOW (YELLOW)
[2022-06-03 11:50] LABS: AMPHETAMINES SCREEN,URINE NEGATIVE (NEGATIVE); BENZODIAZEPINES SCREEN,URINE NEGATIVE (NEGATIVE); KETONES,URINE NEGATIVE (NEGATIVE); LEUKOCYTE ESTERASE ,URINE NEGATIVE (NEGATIVE); NITRITE,URINE NEGATIVE (NEGATIVE); PHENCYCLIDINE SCREEN,URINE NEGATIVE (NEGATIVE); PROTEIN,URINE DIPSTICK NEGATIVE (NEGATIVE); URINE UROBILINOGEN 0.2 mg/dL (0.2 - 1)
[2022-06-03 11:51] LABS: BACTERIA,URINE FEW /HPF; EPITHELIAL CELLS,URINE MANY /LPF; RBC,URINE 0-5 /HPF (0-5)
[2022-06-03] MEDS ORDERED: LACTULOSE SYRUP 20 GM/30 ML UDC PO PRN (12:00)
[2022-06-03] MEDS ORDERED: SODIUM CHLORIDE 0.9% 1000ML 1,000 ML IV SCH (12:15)
[2022-06-03 15:01] LABS: EOSINOPHILS % (MANUAL) 4 % (0-7); LYMPHOCYTES % (MANUAL) 20 % (19-48); MONOCYTES % (MANUAL) 11 % (3.4-9.0); NEUTROPHILS % (MANUAL) 64 % (40-74)
[2022-06-03 15:02] LABS: PLATELET ESTIMATE MARKEDLY DECREASED; PLATELET MORPHOLOGY COMMENT NORMAL; RBC MORPHOLOGY COMMENT NORMAL
[2022-06-03] MEDS ORDERED: INSULIN GL100 UNIT/3 SQ (15:51)
[2022-06-03] MEDS: SODIUM CHLORIDE 0.9% 1000ML 1,000 ML IV SCH (16:55)
[2022-06-03 17:25] VITALS: BP 111/70
[2022-06-03] MEDS ORDERED: DEXTROSE 50% SYRINGE 50 ML IV PRN (18:15)
[2022-06-03 19:25] VITALS: BP 112/67
[2022-06-03 20:00] VITALS: BP 112/67
[2022-06-03] MEDS: AMITRIPTYLINE HCL 25 MG TAB PO SCH (21:22)
[2022-06-03] MEDS: INSULIN LISPRO 100 UNIT/1 ML 3ML VIAL SQ SCH (21:22)
[2022-06-03] MEDS: INSULIN GLARGINE 100 UNITS/ML VIAL SQ SCH (21:23)
[2022-06-03] MEDS: Morphine 2mg Syringe 2 MG/ML SYR IV PRN ×2 (21:35→23:24)
[2022-06-04] VITALS (8 sets, daily range): BP systolic 105–122; BP diastolic 63–76
[2022-06-04] MEDS: SODIUM CHLORIDE 0.9% 1000ML 1,000 ML IV SCH ×3 (02:18→20:15)
[2022-06-04 09:15] LABS: EOSINOPHILS # (AUTO) 0.1 (0.0-0.4); EOSINOPHILS % 4.8 % (0.0-6.0); HEMATOCRIT 34.4 % (38.2-49.6); HEMOGLOBIN 10.9 g/dL (14.0-18.0); LYMPHOCYTES # (AUTO) 0.3 (1.0-3.2); LYMPHOCYTES % 24.6 % (18.0-39.1); MEAN CORPUSCULAR HEMOGLOBIN 28.5 pg (28-32); MEAN CORPUSCULAR HGB CONC 31.7 g/dL (31-35); MEAN CORPUSCULAR VOLUME 89.8 fL (81-99); MONOCYTES # (AUTO) 0.2 (0.2-0.8); MONOCYTES % 12.7 % (4.4-11.3); NEUTROPHILS # (AUTO) 0.7 (2.1-6.9); NEUTROPHILS % 57.9 % (38.7-80.0); RED BLOOD COUNT 3.83 x10e6/uL (4.3-5.7); RED CELL DISTRIBUTION WIDTH 15.5 % (11.7-14.4)
[2022-06-04 09:21] LABS: PLATELET COUNT 26 x10e3/uL (140-360)
[2022-06-04 09:33] LABS: ANION GAP 13.2 mmol/L (8-16); CALCIUM 8.4 mg/dL (8.4-10.2); CREATININE, SERUM 0.82 mg/dL (0.72-1.25); POTASSIUM 4.2 mmol/L (3.5-5.1)
[2022-06-04] MEDS: Morphine 2mg Syringe 2 MG/ML SYR IV PRN ×2 (09:45→21:37)
[2022-06-04] MEDS: FUROSEMIDE 20 MG TAB PO SCH (09:46)
[2022-06-04] MEDS: PROPRANOLOL HCL 10 MG TAB PO SCH ×2 (09:46→17:48)
[2022-06-04] MEDS: INSULIN LISPRO 100 UNIT/1 ML 3ML VIAL SQ SCH ×4 (09:50→21:40)
[2022-06-04 11:06] LABS: EOSINOPHILS % (MANUAL) 8 % (0-7); LYMPHOCYTES % (MANUAL) 20 % (19-48); MONOCYTES % (MANUAL) 6 % (3.4-9.0); NEUTROPHILS % (MANUAL) 66 % (40-74); PLATELET ESTIMATE MARKEDLY DECREASED; PLATELET MORPHOLOGY COMMENT NORMAL; RBC MORPHOLOGY COMMENT NORMAL
[2022-06-04 16:22] LABS: INR 1.18
[2022-06-04 16:34] LABS: FERRITIN 28.69 ng/mL (21.81-274.66)
[2022-06-04] MEDS ORDERED: SODIUM CHLORIDE 0.9% 1000ML 1,000 ML ONE (18:07)
[2022-06-04] MEDS: AMITRIPTYLINE HCL 25 MG TAB PO SCH (21:35)
[2022-06-04] MEDS: INSULIN GLARGINE 100 UNITS/ML VIAL SQ SCH (21:41)
[2022-06-05] VITALS (7 sets, daily range): BP systolic 110–131; BP diastolic 74–82
[2022-06-05] MEDS: SODIUM CHLORIDE 0.9% 1000ML 1,000 ML IV SCH ×2 (06:15→16:15)
[2022-06-05 06:36] LABS: HEMATOCRIT 34.7 % (38.2-49.6); HEMOGLOBIN 11.1 g/dL (14.0-18.0); MEAN CORPUSCULAR HEMOGLOBIN 28.8 pg (28-32); MEAN CORPUSCULAR VOLUME 89.9 fL (81-99); RED BLOOD COUNT 3.86 x10e6/uL (4.3-5.7); RED CELL DISTRIBUTION WIDTH 15.4 % (11.7-14.4)
[2022-06-05 06:47] LABS: PLATELET COUNT 27 x10e3/uL (140-360)
[2022-06-05] MEDS: INSULIN LISPRO 100 UNIT/1 ML 3ML VIAL SQ SCH ×4 (08:00→23:16)
[2022-06-05] MEDS: PROPRANOLOL HCL 10 MG TAB PO SCH ×2 (09:17→17:31)
[2022-06-05] MEDS: FUROSEMIDE 20 MG TAB PO SCH (09:17)
[2022-06-05] MEDS: Morphine 2mg Syringe 2 MG/ML SYR IV PRN (12:52)
[2022-06-05 12:55] LABS: BAND NEUTROPHILS % (MANUAL) 2 %; EOSINOPHILS % (MANUAL) 8 % (0-7); LYMPHOCYTES % (MANUAL) 22 % (19-48); MONOCYTES % (MANUAL) 8 % (3.4-9.0); NEUTROPHILS % (MANUAL) 58 % (40-74)
[2022-06-05 12:56] LABS: PLATELET ESTIMATE MODERATELY DECREASED
[2022-06-05 12:58] LABS: PLATELET MORPHOLOGY COMMENT NORMAL
[2022-06-05] MEDS ORDERED: SODIUM FERRIC GLUCONATE COMPLX 125 MG in SODIUM CHLORIDE 0.9% 100 ML IV SCH (13:00)
[2022-06-05] MEDS: AMITRIPTYLINE HCL 25 MG TAB PO SCH (20:15)
[2022-06-05] MEDS: INSULIN GLARGINE 100 UNITS/ML VIAL SQ SCH (23:16)
[2022-06-06] VITALS (7 sets, daily range): BP systolic 102–121; BP diastolic 66–74
[2022-06-06] MEDS: SODIUM CHLORIDE 0.9% 1000ML 1,000 ML IV SCH ×2 (02:15→12:15)
[2022-06-06 05:36] LABS: BASOPHILS % 0.6 % (0.0-1.0); EOSINOPHILS # (AUTO) 0.1 (0.0-0.4); EOSINOPHILS % 6.2 % (0.0-6.0); HEMATOCRIT 31.3 % (38.2-49.6); HEMOGLOBIN 10.5 g/dL (14.0-18.0); LYMPHOCYTES # (AUTO) 0.4 (1.0-3.2); LYMPHOCYTES % 24.1 % (18.0-39.1); MEAN CORPUSCULAR HEMOGLOBIN 28.2 pg (28-32); MEAN CORPUSCULAR HGB CONC 33.5 g/dL (31-35); MEAN CORPUSCULAR VOLUME 83.9 fL (81-99); MONOCYTES # (AUTO) 0.2 (0.2-0.8); MONOCYTES % 14.8 % (4.4-11.3); NEUTROPHILS # (AUTO) 0.9 (2.1-6.9); NEUTROPHILS % 53.7 % (38.7-80.0); RED BLOOD COUNT 3.73 x10e6/uL (4.3-5.7); RED CELL DISTRIBUTION WIDTH 15.9 % (11.7-14.4)
[2022-06-06 06:07] LABS: PLATELET COUNT 33 x10e3/uL (140-360)
[2022-06-06 07:34] LABS: EOSINOPHILS % (MANUAL) 5 % (0-7); LYMPHOCYTES % (MANUAL) 31 % (19-48); MONOCYTES % (MANUAL) 13 % (3.4-9.0); MYELOCYTES % (MANUAL) 1 % (0-0); NEUTROPHILS % (MANUAL) 49 % (40-74)
[2022-06-06 07:35] LABS: PLATELET ESTIMATE MARKEDLY DECREASED; PLATELET MORPHOLOGY COMMENT NORMAL; RBC MORPHOLOGY COMMENT NORMAL
[2022-06-06 07:56] LABS: ANION GAP 9.9 mmol/L (8-16); CALCIUM 7.9 mg/dL (8.4-10.2); CREATININE, SERUM 0.73 mg/dL (0.72-1.25); POTASSIUM 3.9 mmol/L (3.5-5.1)
[2022-06-06] MEDS: FUROSEMIDE 20 MG TAB PO SCH (08:37)
[2022-06-06] MEDS: PROPRANOLOL HCL 10 MG TAB PO SCH ×2 (08:37→17:27)
[2022-06-06] MEDS: Morphine 2mg Syringe 2 MG/ML SYR IV PRN (08:38)
[2022-06-06] MEDS: INSULIN LISPRO 100 UNIT/1 ML 3ML VIAL SQ SCH ×4 (08:44→23:48)
[2022-06-06] MEDS: AMITRIPTYLINE HCL 25 MG TAB PO SCH (20:19)
[2022-06-06] MEDS: INSULIN GLARGINE 100 UNITS/ML VIAL SQ SCH (23:49)
[2022-06-07] MEDS: Morphine 2mg Syringe 2 MG/ML SYR IV PRN ×2 (00:17→09:00)
[2022-06-07 01:05] VITALS: BP 121/67
[2022-06-07 05:38] VITALS: BP 118/68
[2022-06-07 06:00] LABS: BASOPHILS % 0.7 % (0.0-1.0); EOSINOPHILS # (AUTO) 0.1 (0.0-0.4); EOSINOPHILS % 6.3 % (0.0-6.0); HEMATOCRIT 33.8 % (38.2-49.6); HEMOGLOBIN 10.6 g/dL (14.0-18.0); LYMPHOCYTES # (AUTO) 0.4 (1.0-3.2); LYMPHOCYTES % 25.9 % (18.0-39.1); MEAN CORPUSCULAR HEMOGLOBIN 28.4 pg (28-32); MEAN CORPUSCULAR HGB CONC 31.4 g/dL (31-35); MEAN CORPUSCULAR VOLUME 90.6 fL (81-99); MONOCYTES # (AUTO) 0.2 (0.2-0.8); MONOCYTES % 16.1 % (4.4-11.3); NEUTROPHILS # (AUTO) 0.7 (2.1-6.9); NEUTROPHILS % 50.3 % (38.7-80.0); RED BLOOD COUNT 3.73 x10e6/uL (4.3-5.7); RED CELL DISTRIBUTION WIDTH 15.5 % (11.7-14.4)
[2022-06-07 06:13] LABS: PLATELET COUNT 28 x10e3/uL (140-360)
[2022-06-07 06:22] LABS: ALBUMIN 2.8 g/dL (3.5-5.0); ALBUMIN/GLOBULIN RATIO 0.7 (0.8-2.0); CALCIUM 8.2 mg/dL (8.4-10.2); CREATININE, SERUM 0.87 mg/dL (0.72-1.25)
[2022-06-07] MEDS: INSULIN LISPRO 100 UNIT/1 ML 3ML VIAL SQ SCH ×2 (07:30→11:30)
[2022-06-07] MEDS ORDERED: INSULIN REGULAR, HUMAN 100 UNIT/1 ML IV ONE (07:30)
[2022-06-07 08:43] VITALS: BP 104/85
[2022-06-07 08:49] LABS: EOSINOPHILS % (MANUAL) 9 % (0-7); LYMPHOCYTES % (MANUAL) 26 % (19-48); MONOCYTES % (MANUAL) 6 % (3.4-9.0); MYELOCYTES % (MANUAL) 1 % (0-0); NEUTROPHILS % (MANUAL) 57 % (40-74)
[2022-06-07 08:50] LABS: PLATELET ESTIMATE MARKEDLY DECREASED; PLATELET MORPHOLOGY COMMENT NORMAL
[2022-06-07 09:00] VITALS: BP 88/46
[2022-06-07] MEDS: PROPRANOLOL HCL 10 MG TAB PO SCH (09:00)
[2022-06-07] MEDS: FUROSEMIDE 20 MG TAB PO SCH (10:22)
[2022-06-07] MEDS: AMITRIPTYLINE HCL 25 MG TAB PO SCH (10:22)
[2022-06-07 11:05] VITALS: BP 117/75
[2022-06-07] MEDS ORDERED: LACTULOSE20 GM/30 M PO (12:35)
== END 2022-06-07 13:04 | disposition home or self-care (01) | DRG 433 ==
LOC: ER 10:33 → ERHOLD 12:04 → ER 15:03 → MED/SURG3 15:08
PROVIDERS: ADMIT Internal Medicine; ATTEND Internal Medicine
DX: K70.31 Alcoholic cirrhosis of liver with ascites (principal); D61.818 Other pancytopenia; K76.82 Hepatic encephalopathy; B19.20 Unspecified viral hepatitis C without hepatic coma; I10 Essential (primary) hypertension; K21.9 Gastro-esophageal reflux disease without esophagitis; E11.40 Type 2 diabetes mellitus with diabetic neuropathy, unspecified; E11.65 Type 2 diabetes mellitus with hyperglycemia; G89.4 Chronic pain syndrome; F10.21 Alcohol dependence, in remission; Z88.0 Allergy status to penicillin; Z80.3 Family history of malignant neoplasm of breast; Z82.49 Family history of ischemic heart disease and other diseases of the circulatory system; Z83.3 Family history of diabetes mellitus; Z87.891 Personal history of nicotine dependence; Y90.0 Blood alcohol level of less than 20 mg/100 ml; Z20.822 Contact with and (suspected) exposure to COVID-19; W01.0XXA Fall on same level from slipping, tripping and stumbling without subsequent striking against object, initial encounter; Y93.01 Activity, walking, marching and hiking; Y92.019 Unspecified place in single-family (private) house as the place of occurrence of the external cause; Z79.84 Long term (current) use of oral hypoglycemic drugs
CPT/HCPCS: 36415; 70450; 71045; 76700; 80048; 80053; 80307; 80320; 80329; 81001; 82140; 82607; 82728; 82746; 82948; 83540; 83615; 84466; 84484; 85007; 85025; 85027; 85045; 85610; 85730; 93005; 94799; 96361; 99285; J2270; J2916; J7030; J7050

== ENCOUNTER 2022-08-24 09:49 | Emergency (ER) | payer MEDICARE, OTHER ==
[~2022-08-24] VITALS: Ht 175.3 cm; Wt 68.5 kg
[~2022-08-24 09:49] MED LIST changes: +AMITRIPTYLINE H25 MG; +ATORVASTATIN CA40 MG PO; +CYMBALTA20 MG PO; +DULOXETINE HCL20 MG PO; +FUROSEMIDE20 MG PO; +GABAPENTIN100 MG; +INDERAL10 MG; +INSULIN GL100 UNIT/3 SQ; +LACTULOSE20 GM/30 M PO; +METFORMIN HCL1000 MG; +SPIRONOLACTONE50 MG PO; +[UNRECOGNIZED DRUG - CODE]
[2022-08-24] MEDS ORDERED: SODIUM CHLORIDE 0.9% 1000ML 1,000 ML IV SCH (10:30)
[2022-08-24 10:42] LABS: BASOPHILS % 0.3 % (0.0-1.0); EOSINOPHILS # (AUTO) 0.1 (0.0-0.4); EOSINOPHILS % 2.4 % (0.0-6.0); HEMATOCRIT 37.1 % (38.2-49.6); HEMOGLOBIN 12.3 g/dL (14.0-18.0); LYMPHOCYTES # (AUTO) 0.6 (1.0-3.2); LYMPHOCYTES % 15.2 % (18.0-39.1); MEAN CORPUSCULAR HEMOGLOBIN 30.1 pg (28-32); MEAN CORPUSCULAR HGB CONC 33.2 g/dL (31-35); MEAN CORPUSCULAR VOLUME 90.9 fL (81-99); MONOCYTES # (AUTO) 0.4 (0.2-0.8); MONOCYTES % 9.5 % (4.4-11.3); NEUTROPHILS # (AUTO) 2.7 (2.1-6.9); NEUTROPHILS % 72.3 % (38.7-80.0); PLATELET COUNT 40 x10e3/uL (140-360); RED BLOOD COUNT 4.08 x10e6/uL (4.3-5.7); RED CELL DISTRIBUTION WIDTH 14.5 % (11.7-14.4)
[2022-08-24 11:07] LABS: ALBUMIN 3.4 g/dL (3.5-5.0); ALBUMIN/GLOBULIN RATIO 0.7 (0.8-2.0); ANION GAP 14.4 mmol/L (8-16); CALCIUM 9.2 mg/dL (8.4-10.2); CREATININE, SERUM 0.91 mg/dL (0.72-1.25); POTASSIUM 4.4 mmol/L (3.5-5.1)
[2022-08-24] MEDS ORDERED: ONDANSETRON ODT4 MG PO (11:51)
== END 2022-08-24 12:13 | disposition home or self-care (01) ==
LOC: ER 09:57
DX: R11.2 Nausea with vomiting, unspecified (principal); E11.65 Type 2 diabetes mellitus with hyperglycemia; K76.9 Liver disease, unspecified; K21.9 Gastro-esophageal reflux disease without esophagitis; Z85.89 Personal history of malignant neoplasm of other organs and systems
CPT/HCPCS: 36415; 80053; 85025; 99283

== ENCOUNTER 2023-01-11 17:09 | Inpatient (IN) | payer MEDICARE, OTHER ==
[~2023-01-11] VITALS: Ht 182.9 cm; Wt 63.5 kg
[~2023-01-11 17:09] MED LIST changes: -METFORMIN HCL1000 MG; +METFORMIN HCL1000 MG PO; +ONDANSETRON ODT4 MG PO
[2023-01-11] MEDS ORDERED: Vancomycin IV 1 GM in SODIUM CHLORIDE 0.9% 250ML 250 ML IV ONE (17:30)
[2023-01-11] MEDS ORDERED: SODIUM CHLORIDE 0.9% 1000ML 1,000 ML IV STA (18:28)
[2023-01-11 18:30] LABS: BASOPHILS % 0.6 % (0.0-1.0); EOSINOPHILS # (AUTO) 0.1 (0.0-0.4); EOSINOPHILS % 3.7 % (0.0-6.0); HEMATOCRIT 29.6 % (38.2-49.6); LYMPHOCYTES # (AUTO) 0.6 (1.0-3.2); LYMPHOCYTES % 15.6 % (18.0-39.1); MEAN CORPUSCULAR HEMOGLOBIN 29.7 pg (28-32); MEAN CORPUSCULAR HGB CONC 33.8 g/dL (31-35); MEAN CORPUSCULAR VOLUME 87.8 fL (81-99); MONOCYTES # (AUTO) 0.4 (0.2-0.8); MONOCYTES % 10.5 % (4.4-11.3); NEUTROPHILS # (AUTO) 2.4 (2.1-6.9); NEUTROPHILS % 69.3 % (38.7-80.0); RED BLOOD COUNT 3.37 x10e6/uL (4.3-5.7); RED CELL DISTRIBUTION WIDTH 16.5 % (11.7-14.4)
[2023-01-11 18:35] LABS: INR 1.19; PROTHROMBIN TIME 15.7 seconds (11.9-14.5)
[2023-01-11 18:36] LABS: PLATELET COUNT 45 x10e3/uL (140-360)
[2023-01-11 18:43] LABS: ALBUMIN 3.2 g/dL (3.5-5.0); ALBUMIN/GLOBULIN RATIO 0.5 (0.8-2.0); ANION GAP 13.8 mmol/L (8-16); CREATININE, SERUM 1.46 mg/dL (0.72-1.25); POTASSIUM 4.8 mmol/L (3.5-5.1)
[2023-01-11] MEDS ORDERED: ONDANSETRON HCL INJ 2MG/ML 2ML 2 MG/ML VIAL IV PRN (19:00)
[2023-01-11] MEDS ORDERED: HYDROCODONE/APAP 10MG-325MG TAB PO ONE (19:00)
[2023-01-11] MEDS ORDERED: SODIUM CHLORIDE FLUSH 10 ML SYR INJ PRN (19:00)
[2023-01-11] MEDS ORDERED: Morphine 2mg Syringe 2 MG/ML SYR IV PRN (19:00)
[2023-01-11 20:20] LABS: PLATELET ESTIMATE MARKEDLY DECREASED; PLATELET MORPHOLOGY COMMENT NORMAL; RBC MORPHOLOGY COMMENT NORMAL
[2023-01-11 21:18] VITALS: BP 136/82; PULSE 89; RESP 16; TEMP 97.5; O2SAT 100
[2023-01-11 21:29] VITALS: BP 136/82; PULSE 89; RESP 16; TEMP 97.5; O2SAT 100
[2023-01-11 22:18] VITALS: BP 136/82; PULSE 89; RESP 16; TEMP 97.5; O2SAT 100
[2023-01-12] VITALS (9 sets, daily range): BP systolic 115–126; BP diastolic 56–78; PULSE 68–85; RESP 16–18; TEMP 97.7–98.5; O2SAT 96–100
[2023-01-12 05:44] LABS: EOSINOPHILS # (AUTO) 0.1 (0.0-0.4); EOSINOPHILS % 3.5 % (0.0-6.0); HEMATOCRIT 24.2 % (38.2-49.6); HEMOGLOBIN 8.1 g/dL (14.0-18.0); LYMPHOCYTES # (AUTO) 0.4 (1.0-3.2); LYMPHOCYTES % 18.3 % (18.0-39.1); MEAN CORPUSCULAR HEMOGLOBIN 29.9 pg (28-32); MEAN CORPUSCULAR HGB CONC 33.5 g/dL (31-35); MEAN CORPUSCULAR VOLUME 89.3 fL (81-99); MONOCYTES # (AUTO) 0.4 (0.2-0.8); MONOCYTES % 18.8 % (4.4-11.3); NEUTROPHILS # (AUTO) 1.2 (2.1-6.9); NEUTROPHILS % 57.4 % (38.7-80.0); RED BLOOD COUNT 2.71 x10e6/uL (4.3-5.7); RED CELL DISTRIBUTION WIDTH 16.1 % (11.7-14.4)
[2023-01-12 05:46] LABS: PLATELET COUNT 25 x10e3/uL (140-360)
[2023-01-12 06:08] LABS: ALBUMIN 2.4 g/dL (3.5-5.0); ALBUMIN/GLOBULIN RATIO 0.5 (0.8-2.0); ANION GAP 10.3 mmol/L (8-16); CREATININE, SERUM 1.07 mg/dL (0.72-1.25); POTASSIUM 4.3 mmol/L (3.5-5.1)
[2023-01-12 07:24] LABS: BAND NEUTROPHILS % (MANUAL) 1 %; EOSINOPHILS % (MANUAL) 4 % (0-7); LYMPHOCYTES % (MANUAL) 14 % (19-48); MONOCYTES % (MANUAL) 10 % (3.4-9.0); NEUTROPHILS % (MANUAL) 69 % (40-74)
[2023-01-12 07:25] LABS: PLATELET ESTIMATE MARKEDLY DECREASED; PLATELET MORPHOLOGY COMMENT NORMAL; RBC MORPHOLOGY COMMENT NORMAL
[2023-01-12] MEDS ORDERED: PREGABALIN75 MG PO (09:06)
[2023-01-12] MEDS ORDERED: LACTULOSE SYRUP 20 GM/30 ML UDC PO PRN (09:15)
[2023-01-12] MEDS ORDERED: DEXTROSE 50% SYRINGE 50 ML IV PRN (09:15)
[2023-01-12] MEDS: SENNOSIDES 8.6 MG TAB PO SCH (10:00)
[2023-01-12] MEDS: DOCUSATE SODIUM 100 MG CAP PO SCH (10:00)
[2023-01-12] MEDS: INSULIN GLARGINE 100 UNITS/ML VIAL SQ SCH ×2 (11:44→21:08)
[2023-01-12] MEDS: INSULIN LISPRO 100 UNIT/1 ML 3ML VIAL SQ SCH ×3 (11:45→21:09)
[2023-01-12] MEDS: FUROSEMIDE 40 MG TAB PO SCH (11:48)
[2023-01-12] MEDS: SPIRONOLACTONE 25 MG TAB PO SCH (11:48)
[2023-01-12] MEDS: HYDROMORPHONE 1MG/1ML INJ IV PRN ×3 (11:49→21:28)
[2023-01-12] MEDS: DULOXETINE HCL 20 MG DELAYED RELEASE PO SCH (11:49)
[2023-01-12] MEDS: PREGABALIN 75 MG CAP PO SCH (11:49)
[2023-01-12] MEDS: ATORVASTATIN 40 MG TAB PO SCH (11:49)
[2023-01-12] MEDS: PROPRANOLOL HCL 10 MG TAB PO SCH (16:11)
[2023-01-12] MEDS: AMITRIPTYLINE HCL 25 MG TAB PO SCH (21:02)
[2023-01-13] VITALS (9 sets, daily range): BP systolic 103–127; BP diastolic 55–71; PULSE 64–101; RESP 17–21; TEMP 97.5–98.4; O2SAT 93–100
[2023-01-13 05:36] LABS: BASOPHILS % 0.4 % (0.0-1.0); EOSINOPHILS # (AUTO) 0.1 (0.0-0.4); HEMATOCRIT 24.9 % (38.2-49.6); HEMOGLOBIN 8.1 g/dL (14.0-18.0); LYMPHOCYTES # (AUTO) 0.4 (1.0-3.2); LYMPHOCYTES % 15.7 % (18.0-39.1); MEAN CORPUSCULAR HEMOGLOBIN 29.9 pg (28-32); MEAN CORPUSCULAR HGB CONC 32.5 g/dL (31-35); MEAN CORPUSCULAR VOLUME 91.9 fL (81-99); MONOCYTES # (AUTO) 0.5 (0.2-0.8); MONOCYTES % 18.1 % (4.4-11.3); NEUTROPHILS # (AUTO) 1.7 (2.1-6.9); NEUTROPHILS % 60.4 % (38.7-80.0); PLATELET COUNT 33 x10e3/uL (140-360); RED BLOOD COUNT 2.71 x10e6/uL (4.3-5.7); RED CELL DISTRIBUTION WIDTH 16.1 % (11.7-14.4)
[2023-01-13 06:13] LABS: ALBUMIN 2.5 g/dL (3.5-5.0); ALBUMIN/GLOBULIN RATIO 0.5 (0.8-2.0); ANION GAP 9.1 mmol/L (8-16); CREATININE, SERUM 1.09 mg/dL (0.72-1.25); MAGNESIUM 1.5 MG/DL (1.3-2.1); POTASSIUM 5.1 mmol/L (3.5-5.1)
[2023-01-13 06:38] LABS: FERRITIN 147.59 ng/mL (21.81-274.66); THYROID STIMULATING HORMONE 3.43 uIU/mL (0.350-4.940)
[2023-01-13] MEDS: INSULIN LISPRO 100 UNIT/1 ML 3ML VIAL SQ SCH ×4 (07:30→20:47)
[2023-01-13] MEDS ORDERED: LACTULOSE SYRUP 20 GM/30 ML UDC PO PRN (08:45)
[2023-01-13] MEDS: INSULIN GLARGINE 100 UNITS/ML VIAL SQ SCH ×2 (09:00→20:49)
[2023-01-13] MEDS: SENNOSIDES 8.6 MG TAB PO SCH (09:00)
[2023-01-13] MEDS: DOCUSATE SODIUM 100 MG CAP PO SCH (09:00)
[2023-01-13] MEDS: DULOXETINE HCL 20 MG DELAYED RELEASE PO SCH (09:09)
[2023-01-13] MEDS: FUROSEMIDE 40 MG TAB PO SCH (09:09)
[2023-01-13] MEDS: ATORVASTATIN 40 MG TAB PO SCH (09:10)
[2023-01-13] MEDS: SPIRONOLACTONE 25 MG TAB PO SCH (09:10)
[2023-01-13] MEDS: PROPRANOLOL HCL 10 MG TAB PO SCH ×2 (09:10→17:48)
[2023-01-13] MEDS: PREGABALIN 75 MG CAP PO SCH (09:17)
[2023-01-13] MEDS ORDERED: ONDANSETRON HCL 4 MG ORAL DISINTEGRATING TAB PO PRN (11:30)
[2023-01-13] MEDS: LACTULOSE SYRUP 20 GM/30 ML UDC PO SCH ×2 (15:18→20:18)
[2023-01-13] MEDS: AMITRIPTYLINE HCL 25 MG TAB PO SCH (20:17)
[2023-01-13] MEDS: Morphine 2mg Syringe 2 MG/ML SYR IV PRN (20:38)
[2023-01-14] VITALS (8 sets, daily range): BP systolic 99–155; BP diastolic 51–79; PULSE 63–70; RESP 18–20; TEMP 97.6–98.3; O2SAT 97–100
[2023-01-14 07:11] LABS: BASOPHILS % 1.1 % (0.0-1.0); EOSINOPHILS # (AUTO) 0.1 (0.0-0.4); EOSINOPHILS % 3.3 % (0.0-6.0); HEMATOCRIT 24.2 % (38.2-49.6); HEMOGLOBIN 8.1 g/dL (14.0-18.0); LYMPHOCYTES # (AUTO) 0.3 (1.0-3.2); LYMPHOCYTES % 14.8 % (18.0-39.1); MEAN CORPUSCULAR HEMOGLOBIN 29.8 pg (28-32); MEAN CORPUSCULAR HGB CONC 33.5 g/dL (31-35); MONOCYTES # (AUTO) 0.2 (0.2-0.8); MONOCYTES % 9.3 % (4.4-11.3); NEUTROPHILS # (AUTO) 1.3 (2.1-6.9); NEUTROPHILS % 71.5 % (38.7-80.0); RED BLOOD COUNT 2.72 x10e6/uL (4.3-5.7); RED CELL DISTRIBUTION WIDTH 15.9 % (11.7-14.4)
[2023-01-14 07:19] LABS: PLATELET COUNT 30 x10e3/uL (140-360)
[2023-01-14 07:27] LABS: ANION GAP 13.1 mmol/L (8-16); CALCIUM 7.9 mg/dL (8.4-10.2); CREATININE, SERUM 1.04 mg/dL (0.72-1.25); MAGNESIUM 1.4 MG/DL (1.3-2.1); POTASSIUM 5.1 mmol/L (3.5-5.1)
[2023-01-14] MEDS: INSULIN GLARGINE 100 UNITS/ML VIAL SQ SCH ×2 (09:06→20:56)
[2023-01-14] MEDS: INSULIN LISPRO 100 UNIT/1 ML 3ML VIAL SQ SCH ×4 (09:07→20:56)
[2023-01-14] MEDS: ATORVASTATIN 40 MG TAB PO SCH (09:09)
[2023-01-14] MEDS: FUROSEMIDE 40 MG TAB PO SCH (09:10)
[2023-01-14] MEDS: DULOXETINE HCL 20 MG DELAYED RELEASE PO SCH (09:10)
[2023-01-14] MEDS: DOCUSATE SODIUM 100 MG CAP PO SCH (09:10)
[2023-01-14] MEDS: SENNOSIDES 8.6 MG TAB PO SCH (09:10)
[2023-01-14] MEDS: SPIRONOLACTONE 25 MG TAB PO SCH (09:10)
[2023-01-14] MEDS: PREGABALIN 75 MG CAP PO SCH (09:11)
[2023-01-14] MEDS: PROPRANOLOL HCL 10 MG TAB PO SCH ×2 (09:11→16:41)
[2023-01-14] MEDS: LACTULOSE SYRUP 20 GM/30 ML UDC PO SCH ×3 (09:12→20:45)
[2023-01-14] MEDS: Morphine 2mg Syringe 2 MG/ML SYR IV PRN ×2 (09:24→21:07)
[2023-01-14 11:12] LABS: EOSINOPHILS % (MANUAL) 1 % (0-7); LYMPHOCYTES % (MANUAL) 12 % (19-48); MONOCYTES % (MANUAL) 9 % (3.4-9.0); NEUTROPHILS % (MANUAL) 77 % (40-74)
[2023-01-14 11:13] LABS: PLATELET ESTIMATE MODERATELY DECREASED; PLATELET MORPHOLOGY COMMENT NORMAL; RBC MORPHOLOGY COMMENT NORMAL
[2023-01-14] MEDS: AMITRIPTYLINE HCL 25 MG TAB PO SCH (20:44)
[2023-01-15] VITALS (8 sets, daily range): BP systolic 102–128; BP diastolic 53–76; PULSE 64–86; RESP 17–20; TEMP 97.2–99; O2SAT 98–100
[2023-01-15 05:00] LABS: BASOPHILS % 0.6 % (0.0-1.0); EOSINOPHILS # (AUTO) 0.1 (0.0-0.4); EOSINOPHILS % 4.4 % (0.0-6.0); HEMATOCRIT 25.8 % (38.2-49.6); HEMOGLOBIN 8.3 g/dL (14.0-18.0); LYMPHOCYTES # (AUTO) 0.3 (1.0-3.2); MEAN CORPUSCULAR HEMOGLOBIN 29.9 pg (28-32); MEAN CORPUSCULAR HGB CONC 32.2 g/dL (31-35); MONOCYTES # (AUTO) 0.2 (0.2-0.8); MONOCYTES % 14.4 % (4.4-11.3); NEUTROPHILS % 60.6 % (38.7-80.0); RED BLOOD COUNT 2.78 x10e6/uL (4.3-5.7); RED CELL DISTRIBUTION WIDTH 15.9 % (11.7-14.4)
[2023-01-15 05:06] LABS: MEAN CORPUSCULAR VOLUME 92.8 fL (81-99)
[2023-01-15 05:07] LABS: PLATELET COUNT 34 x10e3/uL (140-360)
[2023-01-15 05:23] LABS: ANION GAP 12.9 mmol/L (8-16); CALCIUM 7.8 mg/dL (8.4-10.2); CREATININE, SERUM 1.27 mg/dL (0.72-1.25); POTASSIUM 4.9 mmol/L (3.5-5.1)
[2023-01-15] MEDS: INSULIN GLARGINE 100 UNITS/ML VIAL SQ SCH ×2 (08:43→21:14)
[2023-01-15] MEDS: INSULIN LISPRO 100 UNIT/1 ML 3ML VIAL SQ SCH ×4 (08:43→21:14)
[2023-01-15] MEDS: SENNOSIDES 8.6 MG TAB PO SCH (08:45)
[2023-01-15] MEDS: SPIRONOLACTONE 25 MG TAB PO SCH (08:45)
[2023-01-15] MEDS: DOCUSATE SODIUM 100 MG CAP PO SCH (08:45)
[2023-01-15] MEDS: DULOXETINE HCL 20 MG DELAYED RELEASE PO SCH (08:45)
[2023-01-15] MEDS: LACTULOSE SYRUP 20 GM/30 ML UDC PO SCH ×3 (08:45→20:59)
[2023-01-15] MEDS: FUROSEMIDE 40 MG TAB PO SCH (08:46)
[2023-01-15] MEDS: ATORVASTATIN 40 MG TAB PO SCH (08:46)
[2023-01-15] MEDS: PREGABALIN 75 MG CAP PO SCH ×2 (08:46→16:21)
[2023-01-15] MEDS: PROPRANOLOL HCL 10 MG TAB PO SCH ×2 (08:47→16:27)
[2023-01-15] MEDS: Morphine 2mg Syringe 2 MG/ML SYR IV PRN (09:00)
[2023-01-15 10:45] LABS: LYMPHOCYTES % (MANUAL) 16 % (19-48); MONOCYTES % (MANUAL) 10 % (3.4-9.0); NEUTROPHILS % (MANUAL) 73 % (40-74); PLATELET ESTIMATE MARKEDLY DECREASED; PLATELET MORPHOLOGY COMMENT NORMAL; RBC MORPHOLOGY COMMENT NORMAL
[2023-01-15] MEDS ORDERED: PREGABALIN 75 MG CAP PO SCH (11:30)
[2023-01-15] MEDS: RIFAXIMIN 550 MG TABLET PO SCH (16:21)
[2023-01-15] MEDS ORDERED: DEXAMETHASONE SOD PHOS 10 MG/1 ML VIAL IV ONE (18:45)
[2023-01-15] MEDS: AMITRIPTYLINE HCL 25 MG TAB PO SCH (20:59)
[2023-01-16 00:37] VITALS: BP 142/82; PULSE 77; RESP 18; TEMP 98.7; O2SAT 100
[2023-01-16 04:52] VITALS: BP 137/74; PULSE 64; RESP 17; TEMP 98.1; O2SAT 98
[2023-01-16 05:28] LABS: HEMATOCRIT 24.1 % (38.2-49.6); LYMPHOCYTES # (AUTO) 0.2 (1.0-3.2); LYMPHOCYTES % 11.6 % (18.0-39.1); MEAN CORPUSCULAR HEMOGLOBIN 29.5 pg (28-32); MEAN CORPUSCULAR HGB CONC 33.2 g/dL (31-35); MEAN CORPUSCULAR VOLUME 88.9 fL (81-99); MONOCYTES # (AUTO) 0.1 (0.2-0.8); MONOCYTES % 3.7 % (4.4-11.3); NEUTROPHILS # (AUTO) 1.6 (2.1-6.9); NEUTROPHILS % 84.7 % (38.7-80.0); PLATELET COUNT 35 x10e3/uL (140-360); RED BLOOD COUNT 2.71 x10e6/uL (4.3-5.7); RED CELL DISTRIBUTION WIDTH 15.8 % (11.7-14.4)
[2023-01-16 06:53] LABS: ALBUMIN 2.4 g/dL (3.5-5.0); ALBUMIN/GLOBULIN RATIO 0.5 (0.8-2.0); ANION GAP 15.9 mmol/L (8-16); CREATININE, SERUM 1.32 mg/dL (0.72-1.25); POTASSIUM 5.9 mmol/L (3.5-5.1)
[2023-01-16] MEDS: INSULIN LISPRO 100 UNIT/1 ML 3ML VIAL SQ SCH ×4 (07:14→21:02)
[2023-01-16 07:40] VITALS: BP 140/76; PULSE 81; RESP 20; TEMP 98.8; O2SAT 100
[2023-01-16] MEDS: LACTULOSE SYRUP 20 GM/30 ML UDC PO SCH ×3 (08:22→20:37)
[2023-01-16] MEDS: SPIRONOLACTONE 25 MG TAB PO SCH (08:23)
[2023-01-16] MEDS: PREGABALIN 75 MG CAP PO SCH ×2 (08:23→16:08)
[2023-01-16] MEDS: MULTIVITAMINS/MINERALS TAB PO SCH (08:23)
[2023-01-16] MEDS: ATORVASTATIN 40 MG TAB PO SCH (08:23)
[2023-01-16] MEDS: DULOXETINE HCL 20 MG DELAYED RELEASE PO SCH (08:23)
[2023-01-16] MEDS: RIFAXIMIN 550 MG TABLET PO SCH ×2 (08:23→16:08)
[2023-01-16] MEDS: PROPRANOLOL HCL 10 MG TAB PO SCH ×2 (08:24→16:08)
[2023-01-16] MEDS: FERROUS SULFATE 325 MG TAB PO SCH (08:24)
[2023-01-16] MEDS: SENNOSIDES 8.6 MG TAB PO SCH (08:24)
[2023-01-16] MEDS: FUROSEMIDE 40 MG TAB PO SCH (08:24)
[2023-01-16] MEDS: Morphine 2mg Syringe 2 MG/ML SYR IV PRN (08:31)
[2023-01-16] MEDS ORDERED: SOD POLYSTYRENE SULFONATE SUSP 15 GM/60 ML BTL PO ONE (09:00)
[2023-01-16 09:16] LABS: BAND NEUTROPHILS % (MANUAL) 2 %; LYMPHOCYTES % (MANUAL) 8 % (19-48); MONOCYTES % (MANUAL) 3 % (3.4-9.0); NEUTROPHILS % (MANUAL) 87 % (40-74)
[2023-01-16 09:17] LABS: PLATELET ESTIMATE MARKEDLY DECREASED; PLATELET MORPHOLOGY COMMENT NORMAL; RBC MORPHOLOGY COMMENT NORMAL
[2023-01-16 10:01] LABS: HIV 1&2 AB SCREEN NON-REACTIVE (NONREACTIVE)
[2023-01-16] MEDS: DOCUSATE SODIUM 100 MG CAP PO SCH (10:35)
[2023-01-16] MEDS: INSULIN GLARGINE 100 UNITS/ML VIAL SQ SCH ×2 (12:05→21:02)
[2023-01-16 12:08] VITALS: BP 124/65; PULSE 68; RESP 20; TEMP 98.1; O2SAT 99
[2023-01-16 15:44] LABS: ANION GAP 15.9 mmol/L (8-16); CALCIUM 8.6 mg/dL (8.4-10.2); CREATININE, SERUM 1.2 mg/dL (0.72-1.25); POTASSIUM 4.9 mmol/L (3.5-5.1)
[2023-01-16] MEDS: PANTOPRAZOLE SOD 40 MG TABEC PO SCH (16:08)
[2023-01-16 16:19] VITALS: BP 140/78; PULSE 59; RESP 16; TEMP 98.7; O2SAT 100
[2023-01-16 20:00] VITALS: BP 134/70; PULSE 73; RESP 18; TEMP 97.9; O2SAT 100
[2023-01-16] MEDS: AMITRIPTYLINE HCL 25 MG TAB PO SCH (20:45)
[2023-01-17 04:44] LABS: BASOPHILS % 0.3 % (0.0-1.0); EOSINOPHILS # (AUTO) 0.1 (0.0-0.4); EOSINOPHILS % 1.6 % (0.0-6.0); HEMATOCRIT 26.6 % (38.2-49.6); HEMOGLOBIN 8.7 g/dL (14.0-18.0); LYMPHOCYTES # (AUTO) 0.3 (1.0-3.2); LYMPHOCYTES % 9.3 % (18.0-39.1); MEAN CORPUSCULAR HEMOGLOBIN 29.5 pg (28-32); MEAN CORPUSCULAR HGB CONC 32.7 g/dL (31-35); MEAN CORPUSCULAR VOLUME 90.2 fL (81-99); MONOCYTES # (AUTO) 0.5 (0.2-0.8); MONOCYTES % 13.7 % (4.4-11.3); NEUTROPHILS # (AUTO) 2.7 (2.1-6.9); NEUTROPHILS % 74.6 % (38.7-80.0); PLATELET COUNT 40 x10e3/uL (140-360); RED BLOOD COUNT 2.95 x10e6/uL (4.3-5.7); RED CELL DISTRIBUTION WIDTH 16.1 % (11.7-14.4)
[2023-01-17 05:08] LABS: ALBUMIN 2.6 g/dL (3.5-5.0); ALBUMIN/GLOBULIN RATIO 0.5 (0.8-2.0); ANION GAP 13.6 mmol/L (8-16); CALCIUM 8.6 mg/dL (8.4-10.2); CREATININE, SERUM 1.51 mg/dL (0.72-1.25); MAGNESIUM 1.5 MG/DL (1.3-2.1); POTASSIUM 4.6 mmol/L (3.5-5.1)
[2023-01-17] MEDS: Morphine 2mg Syringe 2 MG/ML SYR IV PRN ×3 (06:14→23:28)
[2023-01-17 06:55] VITALS: BP 123/63; PULSE 67; RESP 18; TEMP 98.4; O2SAT 97
[2023-01-17 08:00] VITALS: BP 119/55; PULSE 68; RESP 18; TEMP 98.4; O2SAT 97
[2023-01-17] MEDS: ATORVASTATIN 40 MG TAB PO SCH (08:26)
[2023-01-17] MEDS: RIFAXIMIN 550 MG TABLET PO SCH ×2 (08:26→16:50)
[2023-01-17] MEDS: DOCUSATE SODIUM 100 MG CAP PO SCH (08:26)
[2023-01-17] MEDS: PANTOPRAZOLE SOD 40 MG TABEC PO SCH ×2 (08:26→16:50)
[2023-01-17] MEDS: DULOXETINE HCL 20 MG DELAYED RELEASE PO SCH (08:26)
[2023-01-17] MEDS: FUROSEMIDE 40 MG TAB PO SCH (08:26)
[2023-01-17] MEDS: FERROUS SULFATE 325 MG TAB PO SCH (08:26)
[2023-01-17] MEDS: SENNOSIDES 8.6 MG TAB PO SCH (08:26)
[2023-01-17] MEDS: PREGABALIN 75 MG CAP PO SCH ×2 (08:26→16:50)
[2023-01-17] MEDS: SPIRONOLACTONE 25 MG TAB PO SCH (08:27)
[2023-01-17] MEDS: MULTIVITAMINS/MINERALS TAB PO SCH (08:28)
[2023-01-17 08:30] VITALS: BP 119/55; PULSE 68; RESP 18; TEMP 98.4; O2SAT 97
[2023-01-17] MEDS: PROPRANOLOL HCL 10 MG TAB PO SCH ×2 (08:31→16:51)
[2023-01-17] MEDS: LACTULOSE SYRUP 20 GM/30 ML UDC PO SCH ×3 (08:32→21:00)
[2023-01-17] MEDS: INSULIN GLARGINE 100 UNITS/ML VIAL SQ SCH ×2 (09:12→22:15)
[2023-01-17] MEDS: INSULIN LISPRO 100 UNIT/1 ML 3ML VIAL SQ SCH ×4 (09:12→22:16)
[2023-01-17] MEDS ORDERED: MAGNESIUM SULFATE 2GM/50ML 50 ML IV ONE ×2 (09:45→15:00)
[2023-01-17 12:00] VITALS: BP 115/69; PULSE 75; RESP 19; TEMP 97.6; O2SAT 98
[2023-01-17 16:29] VITALS: BP 120/61; PULSE 73; RESP 21; TEMP 97.7; O2SAT 100
[2023-01-17 20:00] VITALS: BP 117/69; PULSE 76; RESP 18; TEMP 97.9; O2SAT 99
[2023-01-17] MEDS: AMITRIPTYLINE HCL 25 MG TAB PO SCH (22:04)
[2023-01-18 04:35] VITALS: BP 120/70; PULSE 74; RESP 17; TEMP 98; O2SAT 99
[2023-01-18 04:53] LABS: BASOPHILS % 0.4 % (0.0-1.0); EOSINOPHILS # (AUTO) 0.1 (0.0-0.4); EOSINOPHILS % 3.6 % (0.0-6.0); HEMATOCRIT 24.7 % (38.2-49.6); HEMOGLOBIN 8.1 g/dL (14.0-18.0); LYMPHOCYTES # (AUTO) 0.4 (1.0-3.2); LYMPHOCYTES % 17.3 % (18.0-39.1); MEAN CORPUSCULAR HEMOGLOBIN 29.2 pg (28-32); MEAN CORPUSCULAR HGB CONC 32.8 g/dL (31-35); MEAN CORPUSCULAR VOLUME 89.2 fL (81-99); MONOCYTES # (AUTO) 0.6 (0.2-0.8); MONOCYTES % 22.2 % (4.4-11.3); NEUTROPHILS # (AUTO) 1.4 (2.1-6.9); NEUTROPHILS % 55.7 % (38.7-80.0); PLATELET COUNT 34 x10e3/uL (140-360); RED BLOOD COUNT 2.77 x10e6/uL (4.3-5.7); RED CELL DISTRIBUTION WIDTH 15.9 % (11.7-14.4)
[2023-01-18 05:15] LABS: ALBUMIN 2.3 g/dL (3.5-5.0); ALBUMIN/GLOBULIN RATIO 0.5 (0.8-2.0); ANION GAP 10.4 mmol/L (8-16); CALCIUM 8.3 mg/dL (8.4-10.2); MAGNESIUM 1.8 MG/DL (1.3-2.1); POTASSIUM 4.4 mmol/L (3.5-5.1)
[2023-01-18 08:28] VITALS: BP 116/64; PULSE 64; RESP 20; TEMP 97.5; O2SAT 98
[2023-01-18] MEDS: PANTOPRAZOLE SOD 40 MG TABEC PO SCH ×2 (08:51→17:03)
[2023-01-18] MEDS: INSULIN LISPRO 100 UNIT/1 ML 3ML VIAL SQ SCH ×4 (08:52→20:42)
[2023-01-18] MEDS: SPIRONOLACTONE 25 MG TAB PO SCH (08:52)
[2023-01-18] MEDS: DULOXETINE HCL 20 MG DELAYED RELEASE PO SCH (08:53)
[2023-01-18] MEDS: FERROUS SULFATE 325 MG TAB PO SCH (08:53)
[2023-01-18] MEDS: PROPRANOLOL HCL 10 MG TAB PO SCH ×2 (08:53→17:03)
[2023-01-18] MEDS: DOCUSATE SODIUM 100 MG CAP PO SCH (08:53)
[2023-01-18] MEDS: PREGABALIN 75 MG CAP PO SCH ×2 (08:53→17:03)
[2023-01-18] MEDS: MULTIVITAMINS/MINERALS TAB PO SCH (08:53)
[2023-01-18] MEDS: Morphine 2mg Syringe 2 MG/ML SYR IV PRN ×2 (08:54→15:52)
[2023-01-18 09:00] VITALS: BP 116/64; PULSE 64; RESP 20; TEMP 97.5; O2SAT 98
[2023-01-18] MEDS: LACTULOSE SYRUP 20 GM/30 ML UDC PO SCH ×3 (09:00→20:33)
[2023-01-18] MEDS: SENNOSIDES 8.6 MG TAB PO SCH (09:00)
[2023-01-18] MEDS: RIFAXIMIN 550 MG TABLET PO SCH ×2 (09:00→17:00)
[2023-01-18 10:52] LABS: CLARITY,URINE CLEAR (CLEAR); COLOR,URINE YELLOW (YELLOW)
[2023-01-18 10:53] LABS: KETONES,URINE NEGATIVE (NEGATIVE); LEUKOCYTE ESTERASE ,URINE NEGATIVE (NEGATIVE); NITRITE,URINE NEGATIVE (NEGATIVE); PROTEIN,URINE DIPSTICK NEGATIVE (NEGATIVE); URINE UROBILINOGEN 4 mg/dL (0.2 - 1)
[2023-01-18 10:55] LABS: RBC,URINE 21-50 /HPF (0-5)
[2023-01-18 10:56] LABS: EPITHELIAL CELLS,URINE MODERATE /LPF
[2023-01-18 11:38] LABS: SODIUM,URINE 94 mmol/L
[2023-01-18 12:05] VITALS: BP 121/60; PULSE 73; RESP 21; TEMP 98.7; O2SAT 100
[2023-01-18] MEDS: INSULIN GLARGINE 100 UNITS/ML VIAL SQ SCH ×2 (12:42→20:44)
[2023-01-18 16:36] VITALS: BP 129/72; PULSE 71; RESP 20; TEMP 98.5; O2SAT 100
[2023-01-18 20:00] VITALS: BP 125/70; PULSE 69; RESP 20; TEMP 98.2; O2SAT 100
[2023-01-18] MEDS: AMITRIPTYLINE HCL 25 MG TAB PO SCH ×2 (20:33→21:00)
[2023-01-19] VITALS (7 sets, daily range): BP systolic 125–144; BP diastolic 70–85; PULSE 61–69; RESP 14–20; TEMP 97.2–98.2; O2SAT 100
[2023-01-19] MEDS: INSULIN LISPRO 100 UNIT/1 ML 3ML VIAL SQ SCH ×3 (07:30→16:43)
[2023-01-19] MEDS: PANTOPRAZOLE SOD 40 MG TABEC PO SCH ×2 (08:33→16:41)
[2023-01-19] MEDS: DOCUSATE SODIUM 100 MG CAP PO SCH (08:34)
[2023-01-19] MEDS: SPIRONOLACTONE 25 MG TAB PO SCH (08:34)
[2023-01-19] MEDS: DULOXETINE HCL 20 MG DELAYED RELEASE PO SCH (08:34)
[2023-01-19] MEDS: FERROUS SULFATE 325 MG TAB PO SCH (08:34)
[2023-01-19] MEDS: MULTIVITAMINS/MINERALS TAB PO SCH (08:35)
[2023-01-19] MEDS: SENNOSIDES 8.6 MG TAB PO SCH (08:35)
[2023-01-19] MEDS: LACTULOSE SYRUP 20 GM/30 ML UDC PO SCH ×2 (08:35→15:00)
[2023-01-19] MEDS: PREGABALIN 75 MG CAP PO SCH ×2 (08:35→16:41)
[2023-01-19] MEDS ORDERED: LACTULOSE20 GM/30 M PO (08:35)
[2023-01-19] MEDS: INSULIN GLARGINE 100 UNITS/ML VIAL SQ SCH (08:37)
[2023-01-19] MEDS: RIFAXIMIN 550 MG TABLET PO SCH ×2 (08:37→16:41)
[2023-01-19] MEDS: PROPRANOLOL HCL 10 MG TAB PO SCH ×2 (08:37→16:41)
[2023-01-19] MEDS ORDERED: MORPHINE SULFATE IR 15 MG TABLET PO PRN (15:45)
[2023-01-19] MEDS ORDERED: MORPHINE SULFATE ER 15 MG TAB PO SCH (22:00)
== END 2023-01-19 18:55 | disposition hospice, inpatient (51) | DRG 432 ==
LOC: ER 17:21 → ERHOLD 18:59 → MED/SURG 20:37
PROVIDERS: ADMIT Internal Medicine; ATTEND Internal Medicine
DX: K70.30 Alcoholic cirrhosis of liver without ascites (principal); E43 Unspecified severe protein-calorie malnutrition; D61.818 Other pancytopenia; N17.9 Acute kidney failure, unspecified; E87.1 Hypo-osmolality and hyponatremia; L97.429 Non-pressure chronic ulcer of left heel and midfoot with unspecified severity; L97.419 Non-pressure chronic ulcer of right heel and midfoot with unspecified severity; Z68.1 Body mass index [BMI] 19.9 or less, adult; K21.9 Gastro-esophageal reflux disease without esophagitis; I10 Essential (primary) hypertension; E11.42 Type 2 diabetes mellitus with diabetic polyneuropathy; B18.2 Chronic viral hepatitis C; L89.150 Pressure ulcer of sacral region, unstageable; F33.41 Major depressive disorder, recurrent, in partial remission; D64.9 Anemia, unspecified; S00.83XA Contusion of other part of head, initial encounter; W19.XXXA Unspecified fall, initial encounter; R29.6 Repeated falls; E11.65 Type 2 diabetes mellitus with hyperglycemia; K76.82 Hepatic encephalopathy; E78.5 Hyperlipidemia, unspecified; F10.20 Alcohol dependence, uncomplicated; E11.621 Type 2 diabetes mellitus with foot ulcer; K72.10 Chronic hepatic failure without coma; Z20.822 Contact with and (suspected) exposure to COVID-19; Z88.0 Allergy status to penicillin; Z79.84 Long term (current) use of oral hypoglycemic drugs; Z79.4 Long term (current) use of insulin; Z87.891 Personal history of nicotine dependence; Z60.2 Problems related to living alone; Z66 Do not resuscitate
CPT/HCPCS: 36415; 74470; 76705; 76770; 80048; 80053; 81001; 82105; 82140; 82607; 82728; 82948; 83010; 83036; 83540; 83615; 83735; 84100; 84134; 84300; 84443; 84466; 85025; 85045; 85610; 85730; 86880; 87040; 87390; 94799; 99252; 99284; G0433; G0435; J0692; J1100; J1170; J1815; J2270; J3475; J7030; J7050